=== PATIENT | male | born 1960 | race Caucasian/White ===

== ENCOUNTER 2017-02-15 06:58 | Inpatient (IN) | payer OTHER ==
[~2017-02-15] VITALS: Ht 188 cm; Wt 76.0 kg
[2017-02-15] MEDS ORDERED: SOD CHLORIDE 0.9% 1,000 ML IV STA (08:01)
--- NOTE | 2017-02-15 08:36 | RADRPT ---
PROCEDURE: XR Chest. CLINICAL INDICATION: Pain . TECHNIQUE: Single frontal chest x-ray. COMPARISON: None. FINDINGS: There is focal consolidation in the right lower lung. Left lung is clear. .. The cardiomediastinal silhouette is unremarkable. The osseous structures are intact. IMPRESSION: Focal right lower lung consolidation or pneumonia.. RPTAT: GG .Ozzy Patino MD, MD Date Time Electronically viewed and signed by .Ozzy Patino MD, on 02/15/2017 08:36 .L/
[2017-02-15] MEDS ORDERED: SODIUM CHLORIDE 0.9% 1L BAG IV* STA (08:45)
[2017-02-15] MEDS ORDERED: CEFEPIME 2GM/50 ML (PMX) 50 ML IVPB STA (08:45)
[2017-02-15 08:49] LABS: ABNORMAL IP MESSAGE 1; BASOPHILS % 0.3 % (0.0-2.0); EOSINOPHILS # 0.1 10^3/ul (0.0-0.5); EOSINOPHILS % 0.9 % (0.0-7.0); HEMATOCRIT 35.4 % (42.0-52.0); HEMOGLOBIN 10.7 g/dl (14.0-18.0); LYMPHOCYTES # 0.5 10^3/ul (0.8-2.9); LYMPHOCYTES % 7.3 % (15.0-51.0); MEAN CORPUSCULAR HEMOGLOBIN 29.5 pg (29.0-33.0); MEAN CORPUSCULAR HGB CONC 30.2 g/dl (32.0-37.0); MEAN CORPUSCULAR VOLUME 97.5 fl (82.0-101.0); MEAN PLATELET VOLUME 11.4 fl (7.4-10.4); MONOCYTES % 15.2 % (0.0-11.0); NEUTROPHIL # 4.8 10^3/ul (1.6-7.5); NEUTROPHILS % 70.9 % (39.0-77.0); NUCLEATED RED BLOOD CELLS% 0.6 /100WBC (0.0-0.0); PLATELET COUNT 164 10^3/UL (140-415); POSITIVE DIFF @See below; RED BLOOD COUNT 3.63 10^6/ul (4.70-6.10); RED CELL DISTRIBUTION WIDTH 18.9 % (11.5-14.5); WHITE BLOOD COUNT 6.7 10^3/ul (4.8-10.8)
[2017-02-15 09:07] LABS: INR 1.3; PROTIME 16.3 Sec (12.2-14.2); PT RATIO 1.3
[2017-02-15 09:14] LABS: ALBUMIN 3.4 g/dl (3.3-4.9); ALBUMIN/GLOBULIN RATIO 0.87; BILIRUBIN,DIRECT 0.1 mg/dl (0.00-0.20); BILIRUBIN,INDIRECT 0.6 mg/dl (0-1.1); BILIRUBIN,TOTAL 0.7 mg/dl (0.2-1.3); CREATININE 0.59 mg/dl (0.61-1.24); TOTAL PROTEIN 7.3 g/dl (6.1-8.1)
[2017-02-15 09:24] LABS: TROPONIN-I 0.013 ng/ml (0.00-0.12)
[2017-02-15] MEDS ORDERED: ONDANSETRON 4 MG INJ IV PRN ×2 (11:00→12:30)
[2017-02-15] MEDS ORDERED: ACETAMINOPHEN 325 MG TAB PO PRN ×2 (11:00→12:30)
[2017-02-15 12:02] LABS: ADD UMIC NO; UR ASCORBIC ACID NEGATIVE (NEGATIVE); UR BILIRUBIN (Dip) NEGATIVE (NEGATIVE); UR BLOOD (Dip) NEGATIVE (NEGATIVE); UR CLARITY CLEAR (CLEAR); UR COLOR AMBER (YELLOW); UR GLUCOSE (Dip) NEGATIVE (NEGATIVE); UR KETONES (Dip) NEGATIVE (NEGATIVE); UR LEUKOCYTE ESTERASE (Dip) NEGATIVE Leu/ul (NEGATIVE); UR NITRITE (Dip) NEGATIVE (NEGATIVE); UR SPECIFIC GRAVITY (Dip) 1.018 (1.003-1.030); UR TOTAL PROTEIN (Dip) NEGATIVE (NEGATIVE); UR UROBILINOGEN (Dip) NEGATIVE (NEGATIVE)
--- NOTE | 2017-02-15 12:03 | ERA ---
ER Documentation Chief Complaint Date/Time DATE: 02/15/17 TIME: 11:50 Chief Complaint abd and back pain x 8 days HPI 56-year-old homeless male with a history of HIV/AIDS, hep C, recent history of bacteremia, and chronic pain with chronic leg swelling presenting to the ER with generalized weakness, complains of abdominal cramping, diarrhea that is nonbloody, with dizziness. He denies any associated chest pain but feels slightly short of breath. He has not noticed any fevers or chills. However he feels like his leg pain and swelling are worsening as are his other symptoms. ROS All systems reviewed and are negative except as per history of present illness. Allergies Allergies: Coded Allergies: vancomycin (Verified Allergy, Unknown, RASH, 02/15/17) PMhx/Soc History of Surgery: Yes (knee ) Anesthesia Reaction: No Hx Neurological Disorder: No Hx Respiratory Disorders: No Hx Cardiac Disorders: No Hx Psychiatric Problems: No Hx Miscellaneous Medical Probl: Yes (hep c , hiv , anemia ) Hx Alcohol Use: Yes Hx Substance Use: Yes (marijuana) Hx Tobacco Use: Yes Smoking Status: Current some day smoker FmHx Family History: No diabetes Physical Exam Vitals Vital Signs Date Time Temp Pulse Resp B/P Pulse Ox O2 Delivery O2 Flow Rate FiO2 02/15/17 11:20 102 18 109/63 96 Nasal Cannula 2.0 02/15/17 08:30 108 18 112/78 98 Nasal Cannula 2.0 02/15/17 07:04 99.1 122 20 119/69 77 Physical Exam Const: Appears chronically ill, unkempt, nontoxic Head: Atraumatic Eyes: Normal Conjunctiva ENT: Normal External Ears, Nose. Dry Mouth. Neck: Full range of motion..~ No meningismus. Resp: Diminished breath sounds right lung, no wheezing or rales Cardio: tachycardic with regular rhythm, no murmurs Abd: Soft, non tender, non distended. hyperactive bowel sounds Skin: No petechiae or rashes Back: No midline or flank tenderness Ext: BLER edema, L>R, no erythema. Diffuse tenderness to palpation Neur: Awake and alert, oriented x 3, strength grossly intact but limited in lower extremities secondary to pain Psych: Normal Mood and Affect Result Diagram: 02/15/1782402/15/17824 Results 24 hrs Laboratory Tests Test 02/15/17 08:25 02/15/17 09:11 02/15/17 11:06 White Blood Count 6.710^3/ul Red Blood Count 3.6310^6/ul Hemoglobin 10.7g/dl Hematocrit 35.4% Mean Corpuscular Volume 97.5fl Mean Corpuscular Hemoglobin 29.5pg Mean Corpuscular Hemoglobin Concent 30.2g/dl Red Cell Distribution Width 18.9% Platelet Count 32092^3/UL Mean Platelet Volume 11.4fl Neutrophils % 70.9% Lymphocytes % 7.3% Monocytes % 15.2% Eosinophils % 0.9% Basophils % 0.3% Nucleated Red Blood Cells % 0.6/100WBC Neutrophils # 4.810^3/ul Lymphocytes # 0.510^3/ul Monocytes # 1.010^3/ul Eosinophils # 0.110^3/ul Basophils # 0.010^3/ul Nucleated Red Blood Cells # 0.010^3/ul Prothrombin Time 16.3Sec Prothrombin Time Ratio 1.3 INR International Normalized Ratio 1.30 Activated Partial Thromboplast Time 36.0Sec Sodium Level 138mmol/L Potassium Level 4.0mmol/L Chloride Level 108mmol/L Carbon Dioxide Level 22mmol/L Anion Gap 12 Blood Urea Nitrogen 20mg/dl Creatinine 0.59mg/dl Glucose Level 75mg/dl Calcium Level 8.0mg/dl Total Bilirubin 0.7mg/dl Direct Bilirubin 0.10mg/dl Indirect Bilirubin 0.6mg/dl Aspartate Amino Transf (AST/SGOT) 61IU/L Alanine Aminotransferase (ALT/SGPT) 38IU/L Alkaline Phosphatase 103IU/L Troponin I 0.013ng/ml Total Protein 7.3g/dl Albumin 3.4g/dl Globulin 3.90g/dl Albumin/Globulin Ratio 0.87 Lipase 24U/L Lactic Acid Level 1.0mmol/L 1.0mmol/L Current Medications Medications (Trade) Dose Ordered Sig/Cecilio Route PRN Reason Start Time Stop Time Status Last Admin Dose Admin Sodium Chloride (NS) 1,000 ml @ 1,000 mls/hr Q1H STAT IV 02/15/17 08:01 02/15/17 09:00 DC 02/15/17 08:27 Sodium Chloride 1340 ml 1,340 ml BOLUS OVER 2 HOURS STAT IV* 02/15/17 08:45 02/15/17 08:47 DC 02/15/17 09:01 Cefepime HCl (Maxipime 2gm/50 ml (Pmx)) 50 ml @ 100 mls/hr ONCE STAT IVPB 02/15/17 08:45 02/15/17 09:14 DC 02/15/17 09:00 Ondansetron HCl (Zofran Inj) 4 mg BRIDGE ORDER PRN IV NAUSEA AND/OR VOMITING 02/15/17 11:00 02/16/17 10:59 Acetaminophen (Tylenol Tab) 650 mg ER BRIDGE PRN PO MILD PAIN/FEVER 02/15/17 11:00 02/16/17 10:59 Procedures/MDM EMERGENT LABS AND DIAGNOSTIC STUDIES: Lab Results above were reviewed and interpreted by me. CBC shows anemia CMP within normal limits Lipase normal Trop wnl lactate normal 12-lead EKG was interpreted by Dutch Fajardo MD: Sinus tachycardia at 118 beats per minute Normal axis Normal intervals No acute ST or T wave changes suggestive of acute ischemia or STEMI. Radiology Results as interpreted by Radiology below were reviewed by Adelia Fajardo MD: Chest XR: IMPRESSION: Focal right lower lung consolidation or pneumonia.. RPTAT: GG .Ozzy Patino MD, MD Date Time Electronically viewed and signed by .Ozzy Patino MD, on 02/15/2017 08:36 Initial Nursing notes reviewed. Previous Medical Records requested via the Electronic Health Record. EMERGENCY DEPARTMENT COURSE / MEDICAL DECISION MAKING: Patient is presenting with multiple symptoms and generalized weakness. Vitals were notable for tachycardia and hypoxia on room air. This improved with supplemental oxygen. I have a low suspicion for meningitis or acute surgical abdomen. X-ray does show evidence of pneumonia. Patient's last CD4 count was very low he states. At this time I think the patient is high risk for decompensation and is not stable for discharge. Broad-spectrum antibiotics were started. IV fluids were given. Patient was admitted for further workup and management. Accepting Care Team: Current data and ongoing care discussed. Time: Time of admission Primary Provider: Dr. Power Consulting: None Outstanding Data: Cultures Departure Diagnosis: Primary Impression: Healthcare-associated pneumonia Additional Impression: Generalized weakness SARAH FAJARDO MD Feb 15, 2017 12:00
--- NOTE | 2017-02-15 12:07 | HP ---
Date/Time of Note Date/Time of Note DATE: 02/15/17 TIME: 12:04 Assessment/Plan VTE Prophylaxis VTE Prophylaxis Intervention: contraindicated Assessment/Plan Chief Complaint/Hosp Course 1. Possible underlying healthcare associated pneumonia. Focal right lower lung consolidation on chest x-ray. The patient will be treated with antibiotics. The patient will be provided with PCP prophylaxis. However, the patient is allergic to Bactrim. Hence, infectious diseases consult will be obtained for antibiotic management. 2. HIV positive status. Patient's CD4 count was undetectable as per report at [facility]. The patient's CD4 count will be repeated. The patient will be started on antiretroviral medications as per infectious diseases. 3. Anemia. Normocytic and normochromic. An iron panel will be obtained. Folic acid and vitamin B12 level will be obtained. 4. Bilateral lower extremity chronic lymphedema. Left greater than right. The patient has history of septic left knee. As a result, the patient has decreased mobility of the left knee joint. A bilateral lower extremity venous Doppler study will be obtained to evaluate for any underlying venous thromboembolism. And a left knee x-ray will be obtained. 5. Noncompliance. Patient will be reinforced on the importance of being compliant with medications. 6. Homeless status. Social work consult will be obtained. Plan: The patient will be admitted to inpatient setting. The patient will be started on a regular diet. The patient will remain a full code. Activities will be bedrest. The rest of the patient's management will be based on the clinical course, inputs from consultants, and the results of diagnostic studies. Based on the patient's clinical presentation, he most probably requires at least 2 midnights' stay for further management and evaluation of his clinical presentation. The case and management of this patient was fully discussed with . Problems: HPI/ROS Admit Date/Time Admit Date/Time Hx of Present Illness Reason for admission: Multiple complaints. Consultants 1. Terrance Dunn MD, Infectious Diseases This is a 56 year old male with past medical history of HIV, hepatitis C, anemia, Kaposi sarcoma, substance abuse, noncompliance, who was discharged from [facility] 2 days ago after a prolonged stay there. He came to the emergency room at [facility] because of multiple complaints. He complained of multiple episodes of nonbloody diarrhea, abdominal cramping, bilateral lower extremity pain, etc. In the emergency room, the patient's workup showed he has underlying normocytic normochromic anemia. He underwent a chest x-ray that showed focal right lower lung consolidation. He was treated with IV cefepime, and analgesics, and IV fluids in the emergency room. The patient's lactic acid levels were within normal limits. ROS Constitutional: no complaints Eyes: no complaints ENT: no complaints Respiratory: no complaints Cardiovascular: edema Gastrointestinal: diarrhea Genitourinary: no complaints Musculoskeletal: bone/joint pain, restricted range of motion (Left knee) Skin: skin lesions Neurologic: no complaints Endocrine: no complaints Lymphatic: lymphadema Psychological: no complaints Immunologic: immunodeficiency PMH/Family/Social Past Medical History Medical History: high cholesterol, other (HIV, Hep C, anemia, Kaposi Sarcoma) Past Surgical History Past Surgical Hx: other (Left knee surgery, ventral hernia repair.) Social History The patient is homeless. Alcohol Use: none Smoking Status: Current some day smoker Drug Use: marijuana Exam/Review of Systems Vital Signs Vitals Vital Signs Date Time Temp Pulse Resp B/P Pulse Ox O2 Delivery O2 Flow Rate FiO2 02/15/17 11:20 102 18 109/63 96 Nasal Cannula 2.0 02/15/17 07:04 99.1 Exam Exam General: Adequately build 56 year-old male lying in bed in no apparent distress. HEENT: Normocephalic, atraumatic. Eyes: Anicteric sclerae, conjunctivae clear. ENT: Nasal septum midline, oral mucosa moist. Neck supple, no JVD noticed. Respiratory: Bilaterally diminished breath sounds. No use of accessory muscles of respiration. No adventitious breath sounds. Cardiovascular: S1, S2 heard. No murmurs or gallops. Abdomen: Distended. Non-tender.Bowel sounds positive in all 4 quadrants. Genitourinary: Deferred. Extremities: B/L LE edema. R>L. Right knee edema and erythema. B/L LE chronic skin changes. Pedal pulses not palpable. Neurologic: Cranial nerves II through XII grossly intact. The patient is awake, alert, and oriented. Labs Result Diagram: 02/15/1782402/15/17824 Medications Medications Current Medications Cefepime HCl (Maxipime 1gm/50 ml (Pmx)) 50 ml @ 100 mls/hr Q12 IVPB ; Start at 21:00 Procedures Procedures CXR IMPRESSION: Focal right lower lung consolidation or pneumonia.. 12-lead EKG Sinus tachycardia. DELMY ÁLVAREZ NP Feb 15, 2017 12:07
[2017-02-15 12:24] LABS: IRON 13 ug/dl (35-150)
[2017-02-15] MEDS ORDERED: NACL 0.9% 3 ML SYG IV SCH (12:30)
[2017-02-15] MEDS ORDERED: morphine 2 MG INJ IV PRN (12:30)
[2017-02-15 12:33] LABS: TOTAL IRON BINDING CAPACITY 243 ug/dl (241-421)
[2017-02-15] MEDS ORDERED: CLON-412 PO (12:38)
[2017-02-15] MEDS ORDERED: GABA300C16 PO (12:39)
[2017-02-15] MEDS ORDERED: DOLU50TA PO (12:39)
[2017-02-15] MEDS ORDERED: NICO1PAT6 TD (12:40)
[2017-02-15] MEDS ORDERED: ONDA-43 PO (12:40)
[2017-02-15] MEDS ORDERED: DOCU-159 PO (12:41)
[2017-02-15] MEDS ORDERED: DARU1TAB PO (12:41)
[2017-02-15] MEDS ORDERED: ZOLP5TAB7 PO (12:41)
[2017-02-15] MEDS ORDERED: FOLI-49 PO (12:42)
[2017-02-15] MEDS ORDERED: ATOV750L PO (12:42)
[2017-02-15] MEDS ORDERED: DOCU-144 PO (12:42)
[2017-02-15 13:34] LABS: FOLATE > 20.0 ng/ml (2.8-20.0)
[2017-02-15] MEDS ORDERED: IMO2 PO (13:45)
[2017-02-15 14:00] VITALS: TEMP 98.6
--- NOTE | 2017-02-15 14:11 | RADRPT ---
PROCEDURE: XR Knee. CLINICAL INDICATION: Inability to straighten leg. TECHNIQUE: AP and lateral views of the left knee are available for review. COMPARISON: None available FINDINGS: There is severe narrowing at the medial and lateral femorotibial compartments noting marginal irregu larity. There is also severe narrowing of the patellofemoral joint. No acute osseous abnormality or evidence of fracture is seen. There is joint effusion. IMPRESSION: 1. Severe, diffuse narrowing of the femoral tibial and patellofemoral compartments noting marginal irregularity and possible erosive change. There is may either be related to underlying inflammatory or less likely infectious etiology, depending on the clinical scenario. 2. Soft tissue swelling. 3. Small joint effusion. RPTAT: HH .Umesh Kong MD, Date Time Electronically viewed and signed by .Umesh Kong MD, on 02/15/2017 14:11 .d/
[2017-02-15 14:13] LABS: BARBITURATES Negative (NEGATIVE); BENZODIAZEPINES Negative (NEGATIVE); CANNABINOIDS Negative (NEGATIVE); COCAINE Negative (NEGATIVE); OPIATES Positive (NEGATIVE)
[2017-02-15] MEDS: HYDROCODONE/APAP (5/325) TAB PO PRN (14:58)
--- NOTE | 2017-02-15 15:51 | RADRPT ---
PROCEDURE: US Lower extremity Venous. CLINICAL INDICATION: Bilateral leg swelling TECHNIQUE: Multiple sonographic images of the bilateral lower extremity deep venous system was obt ained utilizing mcneal scale, color-flow, compressive sonography and doppler imaging with augmentation . COMPARISON: None. FINDINGS: There is normal compressibility and flow within the bilateral common femoral, femoral and popliteal veins. Visualized portions of the calf veins are patent. IMPRESSION: No sonographic evidence for deep venous thrombosis. RPTAT:AAJJ Physician Berlin Date Time Electronically viewed and signed by Physician Berlin on 02/15/2017 15:51 /
[2017-02-15] MEDS ORDERED: LEVOFLOXACIN 500 MG TAB PO ONE (16:30)
[2017-02-15] MEDS ORDERED: ATOVAQUONE 750 MG/5 ML CUP PO ONE (16:30)
[2017-02-15] MEDS: morphine 2 MG INJ IV PRN ×2 (17:25→23:07)
[2017-02-15 17:30] VITALS: PULSE 112
[2017-02-15 18:04] VITALS: BP 106/58; RESP 18
[2017-02-15 18:28] VITALS: Ht 188 cm; Wt 76.0 kg
[2017-02-15 19:48] VITALS: BP 106/61; RESP 18
[2017-02-15] MEDS: FERROUS SULFATE (EC) 325 MG TAB PO SCH (20:46)
[2017-02-15] MEDS: CEFEPIME 1GM/50 ML (PMX) 50 ML IVPB SCH (23:12)
[2017-02-15] MEDS ORDERED: ZOLPIDEM 5 MG TAB PO PRN (23:30)
[2017-02-15] MEDS ORDERED: clonAZEPAM 0.5 MG TAB PO PRN (23:30)
[2017-02-16 02:00] VITALS: BP 112/70; RESP 18
[2017-02-16] MEDS: morphine 2 MG INJ IV PRN ×3 (03:04→09:44)
[2017-02-16] MEDS: HYDROCODONE/APAP (5/325) TAB PO PRN (04:31)
--- NOTE | 2017-02-16 07:32 | CONS ---
DATE OF ADMISSION: 02/15/2017 DATE OF CONSULTATION: 02/15/2017 TYPE OF CONSULTATION: Infectious Disease. REASON FOR CONSULTATION: Antibiotic management. HISTORY OF PRESENT ILLNESS: Michael Be is an unfortunate 56-year-old male with numerous problems w nidhi was at [facility] yesterday and is now admitted to the emergency room at [facility]. PAST MEDICAL HISTORY: His past problems include: 1. History of AIDS. 2. Kaposi sarcoma. 3. Possible pneumocystis pneumonia. 4. 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 6. Recent Stenotrophomonas bacteremia, previously on mepron for PCP and Prezcobix and Tivicay among other medications. Acutely, the patient has a history of substance abuse, noncompliance. He complains of multiple epis odes of nonbloody diarrhea, abdominal cramping, bilateral lower extremity pain. In the emergency ro om, he has underlying normocytic normochromic anemia. Chest x-ray showed some focal right lower maria eugenia g consolidation. He was treated with cefepime and analgesics. He has possible underlying healthcar e-associated pneumonia, focal right lower lobe consolidation on chest x-ray. HE IS ALLERGIC TO BACT RIM. Patient was being treated with mepron, and we will have to get the information from [facility]. His CD4 count was undetectable at [facility]. He needs antiretroviral agents. He has bilate ral lower extremity chronic lymphedema. He has decreased mobility of the left knee joint. Bilatera l lower extremity Doppler was ordered. He is noncompliant. He is homeless. On admission, his whit e count was 6.7, H and H of 10.7 and 35.4, platelet count 164,000. BUN and creatinine 20/0.59, gluc ose random was 75. PAST SURGICAL HISTORY: Operations as outlined. Status post left knee surgery. Status post ventral hernia repair. SOCIAL HISTORY: As noted, he is homeless. He is an every day smoker. He uses marijuana. ALLERGIES: NONE TO PENICILLIN, SULFA OR FOODS. MEDICATIONS: Per chart. REVIEW OF SYSTEMS: As per HPI. PHYSICAL EXAMINATION: GENERAL: The patient is a well-developed, well-nourished male who is lying in bed in no acute distr ess. VITAL SIGNS: Stable. He is afebrile. SKIN: Without generalized rash. HEENT: Within normal limits. NECK: Supple. LYMPH NODES: None palpable. CHEST: Decreased breath sounds at the bases. HEART: Without murmur or gallop. ABDOMEN: Soft, nontender, without organosplenomegaly or masses. EXTREMITIES: Without cyanosis, clubbing. He has bilateral lower extremity edema, right greater mahad n left, with right knee edema and erythema. His pulses are not palpable. NEUROLOGIC: Cranial nerves are intact. No focal neurological abnormalities. IMPRESSION AND PLAN: Patient was started on cefepime, but we need to get the records from [facility] in order to determine what appropriate antibiotics the patient should be on. The patient is als o noted to have hepatitis C as well as HIV and anemia. I will discuss my findings with the hospital ist and try to get records from [facility]. Dictated By: MARNIE LYONS MD, JD/ANNETTE Conf#: [id number] DID#: [id number] CC: SUKHDEEP WILLAMS MD;*EndCC*
[2017-02-16] MEDS: FERROUS SULFATE (EC) 325 MG TAB PO SCH ×3 (08:54→21:38)
[2017-02-16] MEDS: CEFEPIME 1GM/50 ML (PMX) 50 ML IVPB SCH ×2 (09:24→21:38)
[2017-02-16 09:38] VITALS: BP 111/63; RESP 20
--- NOTE | 2017-02-16 10:45 | CONS ---
Date/Time of Note Date/Time of Note DATE: 02/16/17 TIME: 10:39 Assessment/Plan Assessment/Plan Additional Assessment/Plan Left lower extremity pain but objective findings of an acute process HIV per patient Hepatitis C per patient's history Recent hospitalization at [facility] per patient Pain management syndrome Patient is not compliant with history or physical examination. He refuses to answer my questions both about his past medical history use of opioids or history of present illness. I see no reason to keep him on high dose of opioids especially at discharge if he stays for 24 hours I will give him appropriate pain control medication, but only during hospitalization strongly recommend not sending him home in any pain control medication but refer to pain management clinic as soon as possible. Consultation Date/Type/Reason Admit Date/Time Type of Consultation: Pain management Reason for Consultation This is a 56-year-old gentleman with history of HIV and hepatitis C from a pain management standpoint patient states that his pain is left knee and left ankle. This gentleman is very verbally abusive, aggressive and refuses to give a clear current or past medical history. Now that he was recently discharged from [facility] and he states he was treated badly and refuses to give me a history of what he was treated for what he was discharged with. He continues to say his left knee hurts that he has had a history of osteomyelitis multiple times last time was 1 year ago. He states that his knee pain is associated also with his ankle discomfort. Further than that on questioning he refuses to give me any more answers and states that I am asking too many questions. Eyes: no complaints ENT: no complaints Respiratory: no complaints Cardiovascular: edema Gastrointestinal: diarrhea Genitourinary: no complaints Musculoskeletal: bone/joint pain, restricted range of motion (Left knee) Skin: skin lesions Neurologic: no complaints Lymphatic: lymphadema Psychological: no complaints Immunologic: immunodeficiency Past Medical History Medical History: high cholesterol, other (HIV, Hep C, anemia, Kaposi Sarcoma) Past Surgical History Past Surgical Hx: other (Left knee surgery, ventral hernia repair.) Social History Alcohol Use: none Smoking Status: Current every day smoker Drug Use: marijuana Exam/Review of Systems Vital Signs Vitals Vital Signs Date Time Temp Pulse Resp B/P Pulse Ox O2 Delivery O2 Flow Rate FiO2 02/16/17 09:38 98.2 96 20 111/63 90 02/16/17 09:00 Nasal Cannula 2.0 Intake and Output 02/15/17 02/15/17 02/16/17 15:00 23:00 07:00 Intake Total 820 ml 50 ml Output Total 200 ml Balance 620 ml 50 ml Exam Constitutional: other (Aggressive and verbally abusive, unkempt) Head: atraumatic, normocephalic Neurological: CHIP SEPARATOR II-XII intact, nl mental status, nl speech, nl strength Skin: other (4+ circumferential left ankle edema and pretibial edema areas of excoriation and runny discoloration, non-erythematous without flocculence or streaking erythema, 2+ tender from the ankle, range of motion limited to 30 surgical scar anterior patella clean without erythema or discharge, without clubbing cyanosis) Results Result Diagram: 02/15/1782402/15/17 0825 Results 24 hrs Laboratory Tests Test 02/15/17 11:06 02/15/17 11:32 02/15/17 13:10 Lactic Acid Level 1.0 1.2 Urine Color ALEE Urine Clarity CLEAR Urine pH 6.0 Urine Specific [place] 1.018 Urine Ketones NEGATIVE Urine Nitrite NEGATIVE Urine Bilirubin NEGATIVE Urine Urobilinogen NEGATIVE Urine Leukocyte Esterase NEGATIVE Urine Hemoglobin NEGATIVE Urine Glucose NEGATIVE Urine Total Protein NEGATIVE Hemoglobin A1c 5.1 Vitamin D 1,25-Dihydroxy 62.3 Thyroid Stimulating Hormone (TSH) 7.760 H Free Thyroxine 1.25 Urine Opiates Screen Positive Urine Barbiturates Negative Urine Amphetamines Screen Negative Urine Benzodiazepines Screen Negative Urine Cocaine Screen Negative Urine Cannabinoids Negative Medications Medications Current Medications Cefepime HCl (Maxipime 1gm/50 ml (Pmx)) 50 ml @ 100 mls/hr Q12 IVPB Last administered on 02/16/17 09:24; Admin Dose 100 MLS/HR; Start 02/15/17 at 21: 00 Ondansetron HCl (Zofran Inj) 4 mg Q6H PRN IV NAUSEA AND/OR VOMITING; Start 03/24 at 12:30 Acetaminophen (Tylenol Tab) 650 mg Q6H PRN PO PAIN LEVEL 1-3 OR FEVER; Start 02/15/17 at 12:30 Acetaminophen/ Hydrocodone Bitart ([place] (5/325)) 1 tab Q6H PRN PO MODERATE PAIN LEVEL 4-6 Last administered on 02/16/17 04:31; Admin Dose 1 TAB; Start 02/15/17 at 12:30 Ferrous Sulfate (Ferrous Sulfate (Ec)) 325 mg TID PO Last administered on 02/16 08:54; Admin Dose 325 MG; Start 02/15/17 at 21:00 Morphine Sulfate (morphine) 2 mg Q3 PRN IV pain Last administered on 09:44; Admin Dose 2 MG; Start 02/15/17 at 17:30 Clonazepam (Klonopin) 1 mg BID PRN PO ANXIETY Last administered on 02/15/17 23:42; Admin Dose 1 MG; Start 02/15/17 at 23:30 Zolpidem Tartrate (Ambien) 5 mg QHS PRN PO INSOMNIA; Start 02/15/17 at 23:30 URIAH CARRASCO Feb 16, 2017 10:44
[2017-02-16 11:34] LABS: ABNORMAL IP MESSAGE 1; BASOPHILS % 0.3 % (0.0-2.0); EOSINOPHILS # 0.1 10^3/ul (0.0-0.5); EOSINOPHILS % 3.8 % (0.0-7.0); HEMATOCRIT 31.2 % (42.0-52.0); HEMOGLOBIN 9.3 g/dl (14.0-18.0); LYMPHOCYTES # 0.4 10^3/ul (0.8-2.9); LYMPHOCYTES % 10.6 % (15.0-51.0); MEAN CORPUSCULAR HEMOGLOBIN 30.2 pg (29.0-33.0); MEAN CORPUSCULAR HGB CONC 29.8 g/dl (32.0-37.0); MEAN CORPUSCULAR VOLUME 101.3 fl (82.0-101.0); MEAN PLATELET VOLUME 11.2 fl (7.4-10.4); MONOCYTE # 0.3 10^3/ul (0.3-0.9); MONOCYTES % 7.6 % (0.0-11.0); NEUTROPHIL # 2.8 10^3/ul (1.6-7.5); NEUTROPHILS % 75.2 % (39.0-77.0); NUCLEATED RED BLOOD CELLS% 0.8 /100WBC (0.0-0.0); PLATELET COUNT 103 10^3/UL (140-415); POSITIVE DIFF @See below; RED BLOOD COUNT 3.08 10^6/ul (4.70-6.10); RED CELL DISTRIBUTION WIDTH 18.1 % (11.5-14.5); WHITE BLOOD COUNT 3.7 10^3/ul (4.8-10.8)
[2017-02-16 11:55] LABS: ALANINE AMINOTRANSFERASE 41 IU/L (13-69); ALBUMIN/GLOBULIN RATIO 0.85; ALKALINE PHOSPHATASE 110 IU/L (42-121); ANION GAP 9 (8-16); ASPARTATE AMINO TRANSFERASE 71 IU/L (15-46); BILIRUBIN,INDIRECT 0.4 mg/dl (0-1.1); BILIRUBIN,TOTAL 0.4 mg/dl (0.2-1.3); BLOOD UREA NITROGEN 19 mg/dl (7-20); CALCIUM 7.8 mg/dl (8.4-10.2); CARBON DIOXIDE 25 mmol/L (21-31); CHLORIDE 108 mmol/L (97-110); CREATININE 0.63 mg/dl (0.61-1.24); GLUCOSE 127 mg/dl (70-220); HDL CHOLESTEROL 19 mg/dl (28-71); MAGNESIUM 1.8 mg/dl (1.7-2.5); POTASSIUM 4.7 mmol/L (3.5-5.1); SODIUM 137 mmol/L (135-144); TOTAL PROTEIN 6.5 g/dl (6.1-8.1); TRIGLYCERIDES 114 mg/dl (0-149)
--- NOTE | 2017-02-16 11:57 | PN ---
Date/Time of Note Date/Time of Note DATE: 02/16/17 TIME: 11:37 Assessment/Plan VTE Prophylaxis VTE Prophylaxis Intervention: ambulation Lines/Catheters IV Catheter Type (from Nrsg): Peripheral IV Urinary Cath still in place: No Assessment/Plan Chief Complaint/Hosp Course 56-year-old homeless male with a history of IV drug abuse, left knee septic arthritis, noncompliant, who is also recently treated for PCP was again readmitted for left lower extremity swelling and pain. 1. Bilateral lower extremity lymphedema with recent history of left knee septic arthritis. Status Post treatment. -Negative for DVT. Knee X-ray with no significant changes. -We will call pain management team to involve as we do not feel a reason to keep patient on high-dose opioids. -Meanwhile, we will also obtain a bilateral arterial studies to evaluate for any vascular issues that we need to address in-house. 2. Possible Pneumonia per X-ray.Clinically stable. -On IV cefepime. Of note, he was treated with Mepron for PCP prophylaxis at [facility]. -Repeat chest x-ray in a.m and follow-up with ID recommendations. 3. HIV/AIDS? -Follow-up CD4 count. Patient also was on Prezcobix and Tivicay at OSH- Currently he is not on HAART regimen. defer ID on HAART regimen 4. Chronic anemia. H&H stable. -Monitor. 5.Hepatitis C per patient's history -Obtain Hep panel. 6. Status post staph bacteremia. -F/u Repeat culture 7.Status post treatment for cryptococcal meningitis. Currently stable. 8. Noncompliance. -Patient was counselled. 9. Homelessness -Social service eval. 10. Substance abuse. -Cessation advised. 11. Narcotic seeking behaviors. -Patient will be appropriately placed on pain medications. Plan: Follow-up with pain management recommendations. If no further antibiotic treatment indicated, patient is likely stable to be discharged home tomorrow if cleared from ID standpoint. Patient to be followed up with his pain management clinic as outpatient for his pain medications prescriptions as there is currently no reliable information available to support that patient was on methadone treatment. Obtain medical records from [facility] as soon as possible. Patient was seen in collaboration with Dr. Power. Problems: Subjective 24 Hr Interval Summary Free Text/Dictation Patient sitting up in bed. He is not in any acute distress. Continued to complaining of pain on bilateral legs. Otherwise, patient refuses to answer any further questions and reports that he does not want to talk to anyone and needs his pain medications. Exam/Review of Systems Vital Signs Vitals Vital Signs Date Time Temp Pulse Resp B/P Pulse Ox O2 Delivery O2 Flow Rate FiO2 02/16/17 09:38 98.2 96 20 111/63 90 02/16/17 09:00 Nasal Cannula 2.0 Intake and Output 02/15/17 02/15/17 02/16/17 15:00 23:00 07:00 Intake Total 820 ml 50 ml Output Total 200 ml Balance 620 ml 50 ml Exam General: Very aggressive and verbally abusive. HEENT: Normocephalic, Atraumatic, No laceration or hematoma; Eyes: PEERL, Conjunctiva clear, Anicteric sclera Neck: Supple without any lymphadenopathy, nontender, no JVD, no carotid bruits, trachea midline, no thyromegaly Cardiac: S1, S2 auscultated, regular rhythm and rate, no mumurs or gallop Pulmonary: Normal respiratory effort. Chest clear to auscultation bilaterally, no adventitious breath sounds GI: Abdomen normal to inspection. Soft, non tender, non- distended, no masses, no rebound tenderness or guarding. Bowel sounds active on all four quadrants Genitourinary: Deferred Extremities: Bilateral lower extremity/ankle edema with excoriated skin with chronic scleral changes. No focal weakness appreciated. Neurologic: Alert to person, place, time, and situation. Highly Temperamental personality. Skin: Excoriated skin. No cyanosis. Results Result Diagram: 02/15/1782402/15/17824 Results 24 hrs Laboratory Tests Test 02/15/17 13:10 Lactic Acid Level 1.2 Medications Medications Current Medications Cefepime HCl (Maxipime 1gm/50 ml (Pmx)) 50 ml @ 100 mls/hr Q12 IVPB Last administered on 02/16/17t 09:24; Admin Dose 100 MLS/HR; Start 02/15/17 at 21: 00 Ondansetron HCl (Zofran Inj) 4 mg Q6H PRN IV NAUSEA AND/OR VOMITING; Start 03/24 at 12:30 Acetaminophen (Tylenol Tab) 650 mg Q6H PRN PO PAIN LEVEL 1-3 OR FEVER; Start 02/15/17 at 12:30 Ferrous Sulfate (Ferrous Sulfate (Ec)) 325 mg TID PO Last administered on 02/16t 08:54; Admin Dose 325 MG; Start 02/15/17 at 21:00 Zolpidem Tartrate (Ambien) 5 mg QHS PRN PO INSOMNIA; Start 02/15/17 at 23:30 Methadone HCl (Methadone) 20 mg BID PO ; Start 02/16/17 at 21:00; Status UNV Hydromorphone HCl (Dilaudid) 2 mg Q6H PRN PO PAIN LEVEL 6-10; Start 02/16/17 at 10:30; Status UNV DANYELLE GAMEZ NP Feb 16, 2017 11:55 DANYELLE GAMEZ NP Feb 16, 2017 11:55
[2017-02-16 12:11] LABS: CHOLESTEROL < 50 mg/dl (100-200)
[2017-02-16] MEDS ORDERED: LEVOFLOXACIN 500 MG TAB PO ONE (13:00)
[2017-02-16] MEDS ORDERED: AZITHROMYCIN 600 MG TAB PO SCH (13:00)
[2017-02-16] MEDS: HYDROmorphONE 2 MG TAB PO PRN ×2 (13:12→19:34)
[2017-02-16] MEDS: FLUCONAZOLE 200 MG TAB PO SCH (13:42)
[2017-02-16] MEDS ORDERED: NEUTRA-PHOS 250 MG PACKET PO ONE (14:30)
[2017-02-16] MEDS ORDERED: PENDING SANTYL ORDER FOR WOUND CARE XX PRN (16:00)
[2017-02-16 16:12] VITALS: BP 107/59; RESP 20
[2017-02-16 17:05] LABS: HAAIG REFLEX REFLEX FILED
[2017-02-16] MEDS: ATOVAQUONE 750 MG/5 ML CUP PO SCH (18:00)
[2017-02-16 18:45] LABS: HEPATITIS B CORE ANTIBODY REACTIVE (NEGATIVE)
[2017-02-16 20:00] VITALS: BP 107/63; RESP 20
[2017-02-16] MEDS ORDERED: BUPROPION (SR) 100 MG TAB PO SCH (20:30)
[2017-02-16] MEDS: clonAZEPAM 0.5 MG TAB PO SCH (21:38)
[2017-02-16] MEDS: ZYVOX 600 MG TAB PO SCH (21:39)
[2017-02-16] MEDS: ACYCLOVIR 400 MG TAB PO SCH (21:39)
[2017-02-16] MEDS: METHADONE 10 MG TAB PO SCH (21:39)
[2017-02-17] MEDS: HYDROmorphONE 2 MG TAB PO PRN (02:56)
[2017-02-17] MEDS: hydrOXYzine PAMOATE 25 MG CAP PO PRN (04:47)
[2017-02-17] MEDS: LEVOFLOXACIN 500 MG TAB PO SCH (05:34)
[2017-02-17 06:19] LABS: CALCIUM 7.7 mg/dl (8.4-10.2); CREATININE 0.54 mg/dl (0.61-1.24); PHOSPHORUS 2.6 mg/dl (2.5-4.9); POTASSIUM 4.4 mmol/L (3.5-5.1)
--- NOTE | 2017-02-17 07:09 | PN ---
DATE: 02/17/2017 SUBJECTIVE: Patient is awake, looks comfortable, complaining of pain. He had been afebrile overnight. VITAL SIGNS: Temperature 98.2, pulse 96, respirations 20, blood pressure 111/63 , saturation 90% on 2 liters. LABORATORY STUDIES: WBC 3.7, H and H 9.3 and 31.2, platelets 103, neutrophils 75.2. BUN 19, creatinine 0.63, albumin 3. MICROBIOLOGY: Blood and urine culture negative. DIAGNOSTICS: Chest x-ray from admission revealed focal right lower lung consolidation or pneumonia. Extremity venous study revealed no DVT. X-ray of the left knee showed small joint effusion, soft tissue swelling, severe diffuse narrowing of the femoral, tibial and patellofemoral compartments, noting marginal irregularity and possible erosive change. This may be either related to underlying inflammatory or less likely infectious etiology. ANTIMICROBIALS: The patient is on cefepime. PHYSICAL EXAMINATION: GENERAL: Chronically ill-appearing, cachectic, middle-aged man in no distress. HEENT: Head atraumatic, normocephalic. Sclerae anicteric. Buccal mucosa dry. CHEST: Rise symmetrical. Breath sounds diminished to bases. HEART: S1, S2. ABDOMEN: Soft. Bowel tones hypoactive. EXTREMITIES: Left lower extremity edema, chronic. ASSESSMENT: 1. Healthcare-associated pneumonia. 2. Acquired immunodeficiency syndrome with recent CD4 count at [facility] being undetectable, patient had been noncompliant with [facility] 3. Stenotrophomonas and methicillin-resistant Staphylococcus aureus bacteremia on 01/12/2017 and on 03/05/2017 blood culture grew Stenotrophomonas. Repeat blood cultures negative. 4. Chronic pancytopenia. 5. History of Strep pyogenes left knee septic arthritis, treated in the past. 6. Methicillin-resistant Staphylococcus aureus nares colonization. 7. 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 9. Hepatitis C virus, s/p treated with Harvoni. 10. History of noncompliance and pain seeking behavior. 11. ALLERGY TO SULFA, CEFTRIAXONE, CIPROFLOXACIN, DAPSONE, VANCOMYCIN. PLAN: We are going to start Zyvox. Continue cefepime. We will ask pharmacy to get Prezcobix and Tivicay for HIV. Start him on meprone for PCP prophylaxis , oral Levaquin, fluconazole, and acyclovir given as significant immunocompromised state. Monitor his chest x-ray closely. Further recommendations per patient's clinical course. Dictated By: WILFREDO MARION [employer]UAL ASSIST[employer] for MARNIE JAMESON/ANNETTE Conf#: [id number] DID#: [id number] MTDD
[2017-02-17 07:53] VITALS: BP 107/58; RESP 18
--- NOTE | 2017-02-17 08:54 | RADRPT ---
PROCEDURE: US Lower extremity arterial. CLINICAL INDICATION: Diminished pulses. TECHNIQUE: Multiple sonographic images of the bilateral lower extremity arteries were obtained uti lizing grayscale, color-flow and doppler imaging. The images were reviewed on a PACS workstation. COMPARISON: None. FINDINGS: There is no significant calcific plaque. Velocities and waveforms were obtained as described below. RIGHT LEG: Right common femoral artery: 104 cm/s; triphasic waveforms Right proximal superficial femoral artery: 112 cm/s; triphasic waveforms Right mid superficial femoral artery: 82 cm/s; triphasic waveforms Right distal superficial femoral artery: 92 cm/s; triphasic waveforms Right popliteal artery: 98 cm/s; triphasic waveforms Right posterior tibial artery: 129 cm/s; triphasic waveforms Right dorsalis pedis artery: 53 cm/s; triphasic waveforms LEFT LEG: Left common femoral artery: 89 cm/s; triphasic waveforms Left proximal superficial femoral artery: 106 cm/s; triphasic waveforms Left mid superficial femoral artery: 91 cm/s; triphasic waveforms Left distal superficial femoral artery: 101 cm/s; triphasic waveforms Left popliteal artery: 78 cm/s; triphasic waveforms Left posterior tibial artery: 109 cm/s; triphasic waveforms Left dorsalis pedis artery: 54 cm/s; triphasic waveforms IMPRESSION: Unremarkable bilateral lower extremity arterial Doppler ultrasound. RPTAT: GG .Jim Pineda MD, MD Date Time Electronically viewed and signed by .Jim Pineda MD, MD on 02/17/2017 08:53 .G/
--- NOTE | 2017-02-17 08:56 | RADRPT ---
PROCEDURE: XR Chest. CLINICAL INDICATION: pneumonia TECHNIQUE: AP view of the chest were obtained. COMPARISON: February 15, 2017 FINDINGS: The cardiomediastinal silhouette is within normal limits. Bilateral pneumonia is mildly progressed o n the right and significantly progressed on the left. Follow-up to resolution. No signs of pleural f luid or pneumothorax are seen. The osseous structures and soft tissues are grossly unremarkable. IMPRESSION: Bilateral pneumonia is mildly progressed on the right and significantly progressed on the left. Foll ow-up to resolution. RPTAT: GG .Jim Pineda MD, MD Date Time Electronically viewed and signed by .iJm Pineda MD, on 02/17/2017 08:55 .G/
[2017-02-17] MEDS: METHADONE 10 MG TAB PO SCH ×2 (09:01→20:29)
[2017-02-17] MEDS: FLUCONAZOLE 200 MG TAB PO SCH (09:01)
[2017-02-17] MEDS: ZYVOX 600 MG TAB PO SCH ×2 (09:01→20:29)
[2017-02-17] MEDS: FERROUS SULFATE (EC) 325 MG TAB PO SCH ×3 (09:01→20:29)
[2017-02-17] MEDS: ACYCLOVIR 400 MG TAB PO SCH ×2 (09:01→20:28)
[2017-02-17] MEDS: clonAZEPAM 0.5 MG TAB PO SCH ×2 (09:02→20:29)
[2017-02-17] MEDS: CEFEPIME 1GM/50 ML (PMX) 50 ML IVPB SCH ×2 (09:02→20:28)
--- NOTE | 2017-02-17 09:28 | PN ---
Date/Time of Note Date/Time of Note DATE: 02/17/17 TIME: 09:28 Assessment/Plan VTE Prophylaxis VTE Prophylaxis Intervention: ambulation Lines/Catheters IV Catheter Type (from Nrs): Peripheral IV Urinary Cath still in place: No Assessment/Plan Chief Complaint/Hosp Course 56-year-old homeless male with a history of IV drug abuse, left knee septic arthritis, noncompliant, who is also recently treated for PCP was again readmitted for pain management for left lower extremity swelling and pain. 1. Bilateral lower extremity lymphedema (L>R) with a recent history of left knee septic arthritis. Status Post treatment. -Negative arterial and venous studies. -Judicious administration of narcotics as patient is noted with pain seeking behaviors. -We will up with pain management team recommendation. 2.Possible bilateral pneumonia per X-ray. Not symptomatic. -ID on board. On Zyvox/cefepime/Mepron for PCP prophylaxis/Levaquin/ fluconazole/acyclovir given as significant immunocompromised state. -Consider pulmonary evaluation. Follow-up chest x-rays. 3. HIV/AIDS. Previously reported undetectable CD4 from outside hospital. -Follow-up CD4 count. Plan is to start HAART regimen. -Needs to have outpatient clinic follow-up. 4. Chronic anemia. H&H stable. -Monitor. 5.Hepatitis C -Status post treatment. Needs outpatient follow-up. 6. Status post staph bacteremia. -Repeat culture so far negative. 7.History of Kaposi sarcoma/ cryptococcal meningitis. 8. Noncompliance. -Patient was counselled. 9. Homelessness -Social service eval. 10. Substance abuse. -Cessation advised. 11. Narcotic seeking behaviors. -Patient will be appropriately placed on pain medications. 12. Diarrhea, likely AIDS related -Obtain stool studies for C. difficile. -If CDIFF negative, PRN lomotil Plan: Follow up with pulmonary recommendations. If stable for outpatient follow -up, consider discharge planning. In regards to his pain management, patient to be followed up with his outpatient pain management clinic. Patient was seen in collaboration with Dr. Power. Problems: Subjective 24 Hr Interval Summary Free Text/Dictation Patient sitting up in bed. As soon as I walked into the room, he addressed me as "Oh,are you also a friend of the pain management DrJesus who does not know what he is doing"? He also reported that he has not seen me before. I myself reintroduced me to him saying that I was the nurse practitioner who saw you yesterday. Then he stated that I have not seen him before. Patient does not report any cough, fever, chills. He also denied chest pain, palpitation, diaphoresis, headache or any focal deficit. Patient reports that he has been having ongoing diarrhea. He denied any melena, hematochezia, hematemesis, nausea, vomiting or abdominal pain. Patient continued to have pain on his left lower extremities. Exam/Review of Systems Vital Signs Vitals Vital Signs Date Time Temp Pulse Resp B/P Pulse Ox O2 Delivery O2 Flow Rate FiO2 02/17/17 07:53 98.8 86 18 107/58 91 02/16/17 09:00 Nasal Cannula 2.0 Intake and Output 02/16/17 02/16/17 02/17/17 15:00 23:00 07:00 Intake Total 1050 ml 1410 ml Output Total 400 ml Balance 650 ml 1410 ml Exam General: Very aggressive and verbally abusive. HEENT: Normocephalic, Atraumatic, No laceration or hematoma; Eyes: PEERL, Conjunctiva clear, Anicteric sclera Neck: Supple without any lymphadenopathy, nontender, no JVD, no carotid bruits, trachea midline, no thyromegaly Cardiac: S1, S2 auscultated, regular rhythm and rate, no mumurs or gallop Pulmonary: Normal respiratory effort. Chest clear to auscultation bilaterally, no adventitious breath sounds GI: Abdomen normal to inspection. Soft, non tender, non- distended, no masses, no rebound tenderness or guarding. Bowel sounds active on all four quadrants Genitourinary: Deferred Extremities: Bilateral lower extremity/ankle edema with excoriated skin with chronic scleral changes. No focal weakness appreciated. Neurologic: Alert to person, place, time, and situation. Highly Temperamental personality. Skin: Excoriated skin. No cyanosis. Results Result Diagram: 02/16/17 1121 02/17/17 0511 Results 24 hrs Laboratory Tests Test 02/16/17 11:21 02/16/17 16:55 02/17/17 05:11 White Blood Count 3.7 #L Red Blood Count 3.08 L Hemoglobin 9.3 L Hematocrit 31.2 L Mean Corpuscular Volume 101.3 H Mean Corpuscular Hemoglobin 30.2 Mean Corpuscular Hemoglobin Concent 29.8 L Red Cell Distribution Width 18.1 H Platelet Count 103 #L Mean Platelet Volume 11.2 H Neutrophils % 75.2 Lymphocytes % 10.6 L Monocytes % 7.6 Eosinophils % 3.8 Basophils % 0.3 Nucleated Red Blood Cells % 0.8 H Neutrophils # 2.8 Lymphocytes # 0.4 L Monocytes # 0.3 Eosinophils # 0.1 Basophils # 0.0 Nucleated Red Blood Cells # 0.0 Sodium Level 137 136 Potassium Level 4.7 4.4 Chloride Level 108 108 Carbon Dioxide Level 25 23 Anion Gap 9 9 Blood Urea Nitrogen 19 18 Creatinine 0.63 0.54 L Glucose Level 127 # 115 Calcium Level 7.8 L 7.7 L Phosphorus Level 2.0 L 2.6 Magnesium Level 1.8 Total Bilirubin 0.4 Direct Bilirubin 0.00 Indirect Bilirubin 0.4 Aspartate Amino Transf (AST/SGOT) 71 H Alanine Aminotransferase (ALT/SGPT) 41 Alkaline Phosphatase 110 Total Protein 6.5 Albumin 3.0 L Globulin 3.50 H Albumin/Globulin Ratio 0.85 Triglycerides Level 114 Cholesterol Level < 50 L LDL Cholesterol, Calculated HDL Cholesterol 19 L Cholesterol/HDL Ratio Hepatitis B Surface Antigen NEGATIVE Hepatitis B Core Total Antibody REACTIVE H Hepatitis C Antibody REACTIVE H Medications Medications Current Medications Cefepime HCl (Maxipime 1gm/50 ml (Pmx)) 50 ml @ 100 mls/hr Q12 IVPB Last administered on 02/17/17 09:02; Admin Dose 100 MLS/HR; Start 02/15/17 at 21: 00 Ondansetron HCl (Zofran Inj) 4 mg Q6H PRN IV NAUSEA AND/OR VOMITING; Start 03/24 at 12:30 Acetaminophen (Tylenol Tab) 650 mg Q6H PRN PO PAIN LEVEL 1-3 OR FEVER; Start 02/15/17 at 12:30 Ferrous Sulfate (Ferrous Sulfate (Ec)) 325 mg TID PO Last administered on 02/17 09:01; Admin Dose 325 MG; Start 02/15/17 at 21:00 Zolpidem Tartrate (Ambien) 5 mg QHS PRN PO INSOMNIA; Start 02/15/17 at 23:30 Methadone HCl (Methadone) 20 mg BID PO Last administered on 02/17/17 09:01; Admin Dose 20 MG; Start 02/16/17 at 21:00 Hydromorphone HCl (Dilaudid) 2 mg Q6H PRN PO PAIN LEVEL 6-10 Last administered on 02/17/17 02:56; Admin Dose 2 MG; Start 02/16/17 at 10:30 Levofloxacin (Levaquin) 500 mg DAILY@06 PO Last administered on 02/17/17 05: 34; Admin Dose 500 MG; Start 02/17/17 at 06:00 Azithromycin (Zithromax) 1,200 mg Q7D PO Last administered on 02/16/17 15:47 ; Admin Dose 1,200 MG; Start 02/16/17 at 13:00 Fluconazole (Diflucan) 200 mg DAILY PO Last administered on 02/17/17 09:01; Admin Dose 200 MG; Start 02/16/17 at 13:00 Acyclovir (Zovirax) 400 mg BID PO Last administered on 02/17/17 09:01; Admin Dose 400 MG; Start 02/16/17 at 21:00 Linezolid (Zyvox) 600 mg BID PO Last administered on 02/17/17 09:01; Admin Dose 600 MG; Start 02/16/17 at 21:00 Miscellaneous Information (Pending [facility] Order For Wound Care) This patient west... PRN PRN XX WOUND CARE; Start 02/16/17 at 16:00 Clonazepam (Klonopin) 1 mg Q12 PO Last administered on 02/17/17 09:02; Admin Dose 1 MG; Start 02/16/17 at 21:00 Hydroxyzine Pamoate (Vistaril) 25 mg Q6H PRN PO ITCHING Last administered on 04:47; Admin Dose 25 MG; Start 02/16/17 at 20:30 Bupropion HCl (Wellbutrin Sr) 300 mg DAILY PO ; Start 02/16/17 at 20:30; Status UNV DANYELLE GAMEZ V. BANQUET COOK Feb 17, 2017 09:28 DANYELLE GAMEZ V. BANQUET COOK Feb 17, 2017 09:28 DANYELLE GAMEZ V. BANQUET COOK Feb 17, 2017 09:28
--- NOTE | 2017-02-17 09:50 | CONS ---
Date/Time of Note Date/Time of Note DATE: 02/17/17 TIME: 09:47 Consultation Date/Type/Reason Admit Date/Time Feb 15, 2017 at 10:56 Initial Consult Date Type of Consultation: Pain management 24 HR Interval Summary Free Text/Dictation Yesterday patient threatening saying he was going to take a nail and driving into my head with a hammer. After that I spoke to the director of nurses and security advised me to call the police. They arrived I gave them history they spoke with patient and the protein he afterwards and it did not think that there would be more problems. I did not push to press charges or have him arrested. Today I spoke with him reemphasize he needs to go to a methadone treatment program and reemphasize we cannot will not prescribe opioids at the time of discharge. He is unhappy with this but I reemphasized he should seek treatment at a methadone treatment program. I spoken with patient's primary healthcare analyst, she was in attendance when patient threatened to me yesterday for not giving him the opioids he requested. Exam/Review of Systems Vital Signs Vitals Vital Signs Date Time Temp Pulse Resp B/P Pulse Ox O2 Delivery O2 Flow Rate FiO2 02/17/17 07:53 98.8 86 18 107/58 91 02/16/17 09:00 Nasal Cannula 2.0 Intake and Output 02/16/17 02/16/17 02/17/17 15:00 23:00 07:00 Intake Total 1050 ml 1410 ml Output Total 400 ml Balance 650 ml 1410 ml Results Result Diagram: 02/16/17 1121 02/17/17 0511 Results 24 hrs Laboratory Tests Test 02/16/17 11:21 02/16/17 16:55 02/17/17 05:11 White Blood Count 3.7 #L Red Blood Count 3.08 L Hemoglobin 9.3 L Hematocrit 31.2 L Mean Corpuscular Volume 101.3 H Mean Corpuscular Hemoglobin 30.2 Mean Corpuscular Hemoglobin Concent 29.8 L Red Cell Distribution Width 18.1 H Platelet Count 103 #L Mean Platelet Volume 11.2 H Neutrophils % 75.2 Lymphocytes % 10.6 L Monocytes % 7.6 Eosinophils % 3.8 Basophils % 0.3 Nucleated Red Blood Cells % 0.8 H Neutrophils # 2.8 Lymphocytes # 0.4 L Monocytes # 0.3 Eosinophils # 0.1 Basophils # 0.0 Nucleated Red Blood Cells # 0.0 Sodium Level 137 136 Potassium Level 4.7 4.4 Chloride Level 108 108 Carbon Dioxide Level 25 23 Anion Gap 9 9 Blood Urea Nitrogen 19 18 Creatinine 0.63 0.54 L Glucose Level 127 # 115 Calcium Level 7.8 L 7.7 L Phosphorus Level 2.0 L 2.6 Magnesium Level 1.8 Total Bilirubin 0.4 Direct Bilirubin 0.00 Indirect Bilirubin 0.4 Aspartate Amino Transf (AST/SGOT) 71 H Alanine Aminotransferase (ALT/SGPT) 41 Alkaline Phosphatase 110 Total Protein 6.5 Albumin 3.0 L Globulin 3.50 H Albumin/Globulin Ratio 0.85 Triglycerides Level 114 Cholesterol Level < 50 L LDL Cholesterol, Calculated HDL Cholesterol 19 L Cholesterol/HDL Ratio Hepatitis B Surface Antigen NEGATIVE Hepatitis B Core Total Antibody REACTIVE H Hepatitis C Antibody REACTIVE H Medications Medications Current Medications Cefepime HCl (Maxipime 1gm/50 ml (Pmx)) 50 ml @ 100 mls/hr Q12 IVPB Last administered on 02/17/17 09:02; Admin Dose 100 MLS/HR; Start 02/15/17 at 21: 00 Ondansetron HCl (Zofran Inj) 4 mg Q6H PRN IV NAUSEA AND/OR VOMITING; Start 03/24 at 12:30 Acetaminophen (Tylenol Tab) 650 mg Q6H PRN PO PAIN LEVEL 1-3 OR FEVER; Start 02/15/17 at 12:30 Ferrous Sulfate (Ferrous Sulfate (Ec)) 325 mg TID PO Last administered on 02/17 09:01; Admin Dose 325 MG; Start 02/15/17 at 21:00 Zolpidem Tartrate (Ambien) 5 mg QHS PRN PO INSOMNIA; Start 02/15/17 at 23:30 Methadone HCl (Methadone) 20 mg BID PO Last administered on 02/17/17 09:01; Admin Dose 20 MG; Start 02/16/17 at 21:00 Hydromorphone HCl (Dilaudid) 2 mg Q6H PRN PO PAIN LEVEL 6-10 Last administered on 02/17/17 02:56; Admin Dose 2 MG; Start 02/16/17 at 10:30 Levofloxacin (Levaquin) 500 mg DAILY@06 PO Last administered on 02/17/17 05: 34; Admin Dose 500 MG; Start 02/17/17 at 06:00 Azithromycin (Zithromax) 1,200 mg Q7D PO Last administered on 02/16/17 15:47 ; Admin Dose 1,200 MG; Start 02/16/17 at 13:00 Fluconazole (Diflucan) 200 mg DAILY PO Last administered on 02/17/17 09:01; Admin Dose 200 MG; Start 02/16/17 at 13:00 Acyclovir (Zovirax) 400 mg BID PO Last administered on 02/17/17 09:01; Admin Dose 400 MG; Start 02/16/17 at 21:00 Linezolid (Zyvox) 600 mg BID PO Last administered on 02/17/17 09:01; Admin Dose 600 MG; Start 02/16/17 at 21:00 Miscellaneous Information (Pending Santyl Order For Wound Care) This patient west... PRN PRN XX WOUND CARE; Start 02/16/17 at 16:00 Clonazepam (Klonopin) 1 mg Q12 PO Last administered on 02/17/17 09:02; Admin Dose 1 MG; Start 02/16/17 at 21:00 Hydroxyzine Pamoate (Vistaril) 25 mg Q6H PRN PO ITCHING Last administered on 04:47; Admin Dose 25 MG; Start 02/16/17 at 20:30 Bupropion HCl (Wellbutrin Sr) 300 mg DAILY PO ; Start 02/16/17 at 20:30; Status UNV Diphenoxylate HCl/ Atropine (Lomotil) 1 tab Q6H PRN PO DIARRHEA; Start at 10:00; Status UNV URIAH CARRASCO Feb 17, 2017 09:50
[2017-02-17] MEDS ORDERED: DIPHENOXYLATE/ATROPINE TAB PO PRN (10:00)
[2017-02-17 11:57] LABS: LYMPHOCYTE - CD4/CD8 RATIO 0.06 (0.86-5.00)
--- NOTE | 2017-02-17 13:20 | CONS ---
Date/Time of Note Date/Time of Note DATE: 02/17/17 TIME: 13:16 Assessment/Plan Assessment/Plan Additional Assessment/Plan Chest x-ray was reviewed from admission which is showing bilateral infiltrates. Difficult to rule out underlying pulmonary fibrosis. Assessment and recommendations; 1. Patient admitted with what appears to be bilateral pneumonia currently on appropriate antibiotic regimen. 2. 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 3. Chronic lower extremity edema. 4. Chronic diarrhea. Likely HIV induced. 5. Anemia. Continue current treatment. Obtain follow-up chest x-ray in 48 hours. Consultation Date/Type/Reason Admit Date/Time Feb 15, 2017 at 10:56 Date of Consultation: Feb 17, 2017 Type of Consultation: Pulmonary Reason for Consultation Pulmonary consultation requested for evaluation of pneumonia. History of presenting illness; patient is a 56-year-old male who was admitted 2 days ago with complaints of being short of breath. The patient was recently discharged from [facility] where apparently he had a prolonged stay for pneumonia. Patient denies any significant shortness of breath, but does complain of chronic generalized weakness and pain. Denies any coughing or sputum production. Any fever or chills. Past medical history; 1. Patient with history of being HIV positive. Next 2. History of Kaposi's sarcoma. Next 3. Chronic lower extremity edema. Next 4. History of cryptococcal meningitis couple of years ago. Medications; reviewed. Next Allergies; are multiple as outlined above. Social history; patient is homeless. Occupational history; patient is on disability. Review of systems; complains of very minimal shortness of breath. Denies any fever. Chest pain. Complains of mild cough. Complains of generalized weakness. Denies any abdominal pain, nausea vomiting. Complains of chronic lower extremity edema. General exam; middle-aged male, awake, currently in no distress. Eyes: no complaints ENT: no complaints Respiratory: no complaints Cardiovascular: edema Gastrointestinal: diarrhea Genitourinary: no complaints Musculoskeletal: bone/joint pain, restricted range of motion (Left knee) Skin: skin lesions Neurologic: no complaints Lymphatic: lymphadema Psychological: no complaints Immunologic: immunodeficiency Past Medical History Medical History: high cholesterol, other (HIV, Hep C, anemia, Kaposi Sarcoma) Past Surgical History Past Surgical Hx: other (Left knee surgery, ventral hernia repair.) Social History Alcohol Use: none Smoking Status: Current every day smoker Drug Use: marijuana Exam/Review of Systems Vital Signs Vitals Vital Signs Date Time Temp Pulse Resp B/P Pulse Ox O2 Delivery O2 Flow Rate FiO2 02/17/17 07:53 98.8 86 18 107/58 91 02/16/17 09:00 Nasal Cannula 2.0 Intake and Output 02/16/17 02/16/17 02/17/17 15:00 23:00 07:00 Intake Total 1050 ml 1410 ml Output Total 400 ml Balance 650 ml 1410 ml Exam HEENT exam; supple neck, no JVD. No lymphadenopathy. Midline trachea. No thyromegaly. Pharynx is clear. No oral thrush. Chest exam; diminished but clear breath sounds. S1-S2 audible, no murmurs. Regular rhythm. Abdomen exam; soft, protuberant. Bowel sounds audible. Nontender. Extremity exam; 2+ pitting edema lower extremities bilaterally. AL[employer] WORK[employer] exam; no focal deficit. Results Result Diagram: 02/16/17 1121 02/17/17 0511 Results 24 hrs Laboratory Tests Test 02/16/17 16:55 02/17/17 05:11 Hepatitis B Surface Antigen NEGATIVE Hepatitis B Core Total Antibody REACTIVE H Hepatitis C Antibody REACTIVE H Sodium Level 136 Potassium Level 4.4 Chloride Level 108 Carbon Dioxide Level 23 Anion Gap 9 Blood Urea Nitrogen 18 Creatinine 0.54 L Glucose Level 115 Calcium Level 7.7 L Phosphorus Level 2.6 Medications Medications Current Medications Cefepime HCl (Maxipime 1gm/50 ml (Pmx)) 50 ml @ 100 mls/hr Q12 IVPB Last administered on 02/17/17 09:02; Admin Dose 100 MLS/HR; Start 02/15/17 at 21: 00 Ondansetron HCl (Zofran Inj) 4 mg Q6H PRN IV NAUSEA AND/OR VOMITING; Start 03/24 at 12:30 Acetaminophen (Tylenol Tab) 650 mg Q6H PRN PO PAIN LEVEL 1-3 OR FEVER; Start 02/15/17 at 12:30 Ferrous Sulfate (Ferrous Sulfate (Ec)) 325 mg TID PO Last administered on 02/17 09:01; Admin Dose 325 MG; Start 02/15/17 at 21:00 Zolpidem Tartrate (Ambien) 5 mg QHS PRN PO INSOMNIA; Start 02/15/17 at 23:30 Methadone HCl (Methadone) 20 mg BID PO Last administered on 02/17/17 09:01; Admin Dose 20 MG; Start 02/16/17 at 21:00 Hydromorphone HCl (Dilaudid) 2 mg Q6H PRN PO PAIN LEVEL 6-10 Last administered on 02/17/17 02:56; Admin Dose 2 MG; Start 02/16/17 at 10:30 Levofloxacin (Levaquin) 500 mg DAILY@06 PO Last administered on 02/17/17 05: 34; Admin Dose 500 MG; Start 02/17/17 at 06:00 Azithromycin (Zithromax) 1,200 mg Q7D PO Last administered on 02/16/17 15:47 ; Admin Dose 1,200 MG; Start 02/16/17 at 13:00 Fluconazole (Diflucan) 200 mg DAILY PO Last administered on 02/17/17 09:01; Admin Dose 200 MG; Start 02/16/17 at 13:00 Acyclovir (Zovirax) 400 mg BID PO Last administered on 02/17/17 09:01; Admin Dose 400 MG; Start 02/16/17 at 21:00 Linezolid (Zyvox) 600 mg BID PO Last administered on 02/17/17 09:01; Admin Dose 600 MG; Start 02/16/17 at 21:00 [facility] This patient west... PRN PRN XX WOUND CARE; Start 02/16/17 at 16:00 Clonazepam (Klonopin) 1 mg Q12 PO Last administered on 02/17/17 09:02; Admin Dose 1 MG; Start 02/16/17 at 21:00 Hydroxyzine Pamoate (Vistaril) 25 mg Q6H PRN PO ITCHING Last administered on 04:47; Admin Dose 25 MG; Start 02/16/17 at 20:30 Bupropion HCl (Wellbutrin Sr) 300 mg DAILY PO ; Start 02/16/17 at 20:30; Status UNV Diphenoxylate HCl/ Atropine (Lomotil) 1 tab Q6H PRN PO DIARRHEA; Start at 10:00; Status Future Hold QARNI,CHIQUITA Feb 17, 2017 13:20
--- NOTE | 2017-02-17 13:32 | CONS ---
Date/Time of Note Date/Time of Note DATE: 02/17/17 TIME: 13:26 Consult Date/Type/Reason Admit Date/Time Feb 15, 2017 at 10:56 Initial Consult Date 02/17/17 Type of Consultation: ID Objective Vital Signs Date Time Temp Pulse Resp B/P Pulse Ox O2 Delivery O2 Flow Rate FiO2 02/17/17 07:53 98.8 86 18 107/58 91 02/16/17 09:00 Nasal Cannula 2.0 Intake and Output 02/16/17 02/16/17 02/17/17 15:00 23:00 07:00 Intake Total 1050 ml 1410 ml Output Total 400 ml Balance 650 ml 1410 ml Results/Medications Result Diagram: 02/16/17 1121 02/17/17 0511 Results 24 hrs Laboratory Tests Test 02/16/17 16:55 02/17/17 05:11 Hepatitis B Surface Antigen NEGATIVE Hepatitis B Core Total Antibody REACTIVE H Hepatitis C Antibody REACTIVE H Sodium Level 136 Potassium Level 4.4 Chloride Level 108 Carbon Dioxide Level 23 Anion Gap 9 Blood Urea Nitrogen 18 Creatinine 0.54 L Glucose Level 115 Calcium Level 7.7 L Phosphorus Level 2.6 Medications Current Medications Cefepime HCl (Maxipime 1gm/50 ml (Pmx)) 50 ml @ 100 mls/hr Q12 IVPB Last administered on 02/17/17 09:02; Admin Dose 100 MLS/HR; Start 02/15/17 at 21: 00 Ondansetron HCl (Zofran Inj) 4 mg Q6H PRN IV NAUSEA AND/OR VOMITING; Start 03/24 at 12:30 Acetaminophen (Tylenol Tab) 650 mg Q6H PRN PO PAIN LEVEL 1-3 OR FEVER; Start 02/15/17 at 12:30 Ferrous Sulfate (Ferrous Sulfate (Ec)) 325 mg TID PO Last administered on 02/17 09:01; Admin Dose 325 MG; Start 02/15/17 at 21:00 Zolpidem Tartrate (Ambien) 5 mg QHS PRN PO INSOMNIA; Start 02/15/17 at 23:30 Methadone HCl (Methadone) 20 mg BID PO Last administered on 02/17/17 09:01; Admin Dose 20 MG; Start 02/16/17 at 21:00 Hydromorphone HCl (Dilaudid) 2 mg Q6H PRN PO PAIN LEVEL 6-10 Last administered on 02/17/17 02:56; Admin Dose 2 MG; Start 02/16/17 at 10:30 Levofloxacin (Levaquin) 500 mg DAILY@06 PO Last administered on 02/17/17 05: 34; Admin Dose 500 MG; Start 02/17/17 at 06:00 Azithromycin (Zithromax) 1,200 mg Q7D PO Last administered on 02/16/17 15:47 ; Admin Dose 1,200 MG; Start 02/16/17 at 13:00 Fluconazole (Diflucan) 200 mg DAILY PO Last administered on 02/17/17 09:01; Admin Dose 200 MG; Start 02/16/17 at 13:00 Acyclovir (Zovirax) 400 mg BID PO Last administered on 02/17/17 09:01; Admin Dose 400 MG; Start 02/16/17 at 21:00 Linezolid (Zyvox) 600 mg BID PO Last administered on 02/17/17 09:01; Admin Dose 600 MG; Start 02/16/17 at 21:00 [facility] This patient west... PRN PRN XX WOUND CARE; Start 02/16/17 at 16:00 Clonazepam (Klonopin) 1 mg Q12 PO Last administered on 02/17/17 09:02; Admin Dose 1 MG; Start 02/16/17 at 21:00 Hydroxyzine Pamoate (Vistaril) 25 mg Q6H PRN PO ITCHING Last administered on 04:47; Admin Dose 25 MG; Start 02/16/17 at 20:30 Bupropion HCl (Wellbutrin Sr) 300 mg DAILY PO ; Start 02/16/17 at 20:30; Status UNV Diphenoxylate HCl/ Atropine (Lomotil) 1 tab Q6H PRN PO DIARRHEA; Start at 10:00; Status Future Hold Assessment/Plan Chief Complaint/Hosp Course SUBJECTIVE: No acute changes, sleeping, looks comfortable, no fevers MICROBIOLOGY: Blood and urine culture negative. ANTIMICROBIALS: Zyvox, Cefepime, Levaquin, Diflucan, Meprone, Acyclovir. ALL: Sulfa, Vanco, Dapsone, Cipro, Rocephin PHYSICAL EXAMINATION: GENERAL: Chronically ill-appearing, cachectic, middle-aged man in no distress. HEENT: Head atraumatic, normocephalic. Sclerae anicteric. Buccal mucosa dry. CHEST: Rise symmetrical. Breath sounds diminished to bases. HEART: S1, S2. ABDOMEN: Soft. Bowel tones hypoactive. EXTREMITIES: Left lower extremity edema, chronic. ASSESSMENT: 1. Healthcare-associated pneumonia. 2. Acquired immunodeficiency syndrome with recent CD4 count at [facility] being undetectable, patient had been noncompliant with [facility]AN 3. Stenotrophomonas and methicillin-resistant Staphylococcus aureus bacteremia on 01/12/2017 and on 03/05/2017 blood culture grew Stenotrophomonas. Repeat blood cultures negative. 4. Chronic pancytopenia. 5. History of Strep pyogenes left knee septic arthritis, treated in the past. 6. Methicillin-resistant Staphylococcus aureus nares colonization. 7. 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 9. Hepatitis C virus, s/p treated with Harvoni. 10. History of noncompliance and pain seeking behavior. 11. LLE chronic lymphedema 12. ALLERGY TO SULFA, CEFTRIAXONE, CIPROFLOXACIN, DAPSONE, VANCOMYCIN. PLAN: Clinically stable, with worsening CXR, covered with abx, f/u cxr, pulmonary rec-s, pharmacy trying to get his HIV medications Problems: WILFREDO MARION NP Feb 17, 2017 13:32
[2017-02-17 14:58] VITALS: BP 106/61; RESP 18
[2017-02-17] MEDS: ATOVAQUONE 750 MG/5 ML CUP PO SCH (18:30)
[2017-02-17 20:00] VITALS: BP 181/75; RESP 20
[2017-02-18 02:00] VITALS: BP 107/70; RESP 20
[2017-02-18] MEDS: HYDROmorphONE 2 MG TAB PO PRN ×2 (04:08→10:47)
[2017-02-18] MEDS: LEVOFLOXACIN 500 MG TAB PO SCH (05:49)
[2017-02-18] MEDS: hydrOXYzine PAMOATE 25 MG CAP PO PRN (06:19)
[2017-02-18 07:47] VITALS: BP 113/65; RESP 14
[2017-02-18] MEDS: CEFEPIME 1GM/50 ML (PMX) 50 ML IVPB SCH ×2 (08:44→21:02)
[2017-02-18] MEDS: ACYCLOVIR 400 MG TAB PO SCH ×2 (08:44→21:04)
[2017-02-18] MEDS: ZYVOX 600 MG TAB PO SCH ×2 (08:44→21:03)
[2017-02-18] MEDS: FERROUS SULFATE (EC) 325 MG TAB PO SCH ×3 (08:44→21:04)
[2017-02-18] MEDS: FLUCONAZOLE 200 MG TAB PO SCH (08:44)
[2017-02-18] MEDS: clonAZEPAM 0.5 MG TAB PO SCH ×2 (08:44→21:04)
[2017-02-18] MEDS: METHADONE 10 MG TAB PO SCH ×2 (08:45→21:03)
--- NOTE | 2017-02-18 09:06 | PN ---
Date/Time of Note Date/Time of Note DATE: 02/18/17 TIME: 09:01 Assessment/Plan VTE Prophylaxis VTE Prophylaxis Intervention: ambulation Lines/Catheters IV Catheter Type (from Nrs): Peripheral IV Urinary Cath still in place: No Assessment/Plan Chief Complaint/Hosp Course 56-year-old homeless male with a history of IV drug abuse, left knee septic arthritis, noncompliant, who is also recently treated for PCP was again readmitted for pain management for left lower extremity swelling and pain. 1. Bilateral lower extremity lymphedema (L>R) with a recent history of left knee septic arthritis. Status Post treatment. -Negative arterial and venous studies. -Judicious administration of narcotics as patient is noted with pain seeking behaviors. -We will up with pain management team recommendation. 2.Possible bilateral pneumonia per X-ray. Not symptomatic. -ID on board. On Zyvox/cefepime/Mepron for PCP prophylaxis/Levaquin/ fluconazole/acyclovir given as significant immunocompromised state. -Pulmonary evaluation appreciated and per recommendation, pulmonary fibrosis cannot be excluded at this time. Follow-up chest x-rays. 3. HIV/AIDS with CD4 count 20. Patient with noncompliance with his antiretroviral therapy. -Pharmacy trying to get HAART regimen. -Needs to have outpatient clinic follow-up. 4. Chronic anemia. H&H stable. -Monitor. 5.Hepatitis C -Status post treatment. Needs outpatient follow-up. 6. Status post staph bacteremia. -Repeat culture so far negative. 7.History of Kaposi sarcoma/ cryptococcal meningitis. 8. Noncompliance. -Patient was counselled. 9. Homelessness -Social service eval. 10. Substance abuse. -Cessation advised. 11. Narcotic seeking behaviors. -Patient will be appropriately placed on pain medications. 12. Diarrhea, likely AIDS related -Follow-up stool C. difficile. -If CDIFF negative, PRN lomotil Plan: As per pulmonary/ID recommendation, we will continue current antimicrobial regimen along with antiretroviral therapy. We will follow-up chest x-ray in 24-48 hours. In regards to his pain management, patient to be followed up with his outpatient pain management clinic. Patient was seen in collaboration with Dr. Power. Problems: Subjective 24 Hr Interval Summary Free Text/Dictation Patient continued to have diarrhea. Remains afebrile. Exam/Review of Systems Vital Signs Vitals Vital Signs Date Time Temp Pulse Resp B/P Pulse Ox O2 Delivery O2 Flow Rate FiO2 02/18/17 07:58 Nasal Cannula 2.0 02/18/17 07:47 97.4 89 14 113/65 91 Intake and Output 02/17/17 02/17/17 02/18/17 15:00 23:00 07:00 Intake Total 1350 ml 2170 ml 800 ml Balance 1350 ml 2170 ml 800 ml Exam General: With highly temperamental personality HEENT: Normocephalic, Atraumatic, No laceration or hematoma; Eyes: PEERL, Conjunctiva clear, Anicteric sclera Neck: Supple without any lymphadenopathy, nontender, no JVD, no carotid bruits, trachea midline, no thyromegaly Cardiac: S1, S2 auscultated, regular rhythm and rate, no mumurs or gallop Pulmonary: Normal respiratory effort. Chest clear to auscultation bilaterally, no adventitious breath sounds GI: Abdomen normal to inspection. Soft, non tender, non- distended, no masses, no rebound tenderness or guarding. Bowel sounds active on all four quadrants Genitourinary: Deferred Extremities: Bilateral lower extremity/ankle edema with excoriated skin with chronic scleral changes. No focal weakness appreciated. Neurologic: Alert to person, place, time, and situation. Highly Temperamental personality. Skin: Excoriated skin. No cyanosis. Results Result Diagram: 02/16/17 1121 02/17/17 0511 Medications Medications Current Medications Cefepime HCl (Maxipime 1gm/50 ml (Pmx)) 50 ml @ 100 mls/hr Q12 IVPB Last administered on 02/17/17 20:28; Admin Dose 100 MLS/HR; Start 02/15/17 at 21: 00 Ondansetron HCl (Zofran Inj) 4 mg Q6H PRN IV NAUSEA AND/OR VOMITING; Start 03/24 at 12:30 Acetaminophen (Tylenol Tab) 650 mg Q6H PRN PO PAIN LEVEL 1-3 OR FEVER; Start 02/15/17 at 12:30 Ferrous Sulfate (Ferrous Sulfate (Ec)) 325 mg TID PO Last administered on 02/17 20:29; Admin Dose 325 MG; Start 02/15/17 at 21:00 Zolpidem Tartrate (Ambien) 5 mg QHS PRN PO INSOMNIA; Start 02/15/17 at 23:30 Methadone HCl (Methadone) 20 mg BID PO Last administered on 02/17/17 20:29; Admin Dose 20 MG; Start 02/16/17 at 21:00 Hydromorphone HCl (Dilaudid) 2 mg Q6H PRN PO PAIN LEVEL 6-10 Last administered on 02/18/17 04:08; Admin Dose 2 MG; Start 02/16/17 at 10:30 Levofloxacin (Levaquin) 500 mg DAILY@06 PO Last administered on 02/18/17 05: 49; Admin Dose 500 MG; Start 02/17/17 at 06:00 Azithromycin (Zithromax) 1,200 mg Q7D PO Last administered on 02/16/17 15:47 ; Admin Dose 1,200 MG; Start 02/16/17 at 13:00 Fluconazole (Diflucan) 200 mg DAILY PO Last administered on 02/17/17 09:01; Admin Dose 200 MG; Start 02/16/17 at 13:00 Acyclovir (Zovirax) 400 mg BID PO Last administered on 02/17/17 20:28; Admin Dose 400 MG; Start 02/16/17 at 21:00 Linezolid (Zyvox) 600 mg BID PO Last administered on 02/17/17 20:29; Admin Dose 600 MG; Start 02/16/17 at 21:00 Miscellaneous Information (Pending [facility] Order For Wound Care) This patient west... PRN PRN XX WOUND CARE; Start 02/16/17 at 16:00 Clonazepam (Klonopin) 1 mg Q12 PO Last administered on 02/17/17 20:29; Admin Dose 1 MG; Start 02/16/17 at 21:00 Hydroxyzine Pamoate (Vistaril) 25 mg Q6H PRN PO ITCHING Last administered on 06:19; Admin Dose 25 MG; Start 02/16/17 at 20:30 Bupropion HCl (Wellbutrin Sr) 300 mg DAILY PO ; Start 02/16/17 at 20:30; Status UNV Diphenoxylate HCl/ Atropine (Lomotil) 1 tab Q6H PRN PO DIARRHEA; Start at 10:00; Status Future Hold Non-Formulary Medication 1 ea DAILY PO ; Start 02/18/17 at 09:00; Status UNV Dolutegravir Sodium (Tivicay) 50 mg DAILY PO ; Start 02/18/17 at 09:00; Status UNV DANYELLE GAMEZ NP Feb 18, 2017 09:05
--- NOTE | 2017-02-18 10:52 | CONS ---
Date/Time of Note Date/Time of Note DATE: 02/18/17 TIME: 10:51 Consultation Date/Type/Reason Admit Date/Time Feb 17, 2017 at 14:55 Initial Consult Date 02/17/17 Type of Consultation: pulm 24 HR Interval Summary Free Text/Dictation dictated [id number] Exam/Review of Systems Vital Signs Vitals Vital Signs Date Time Temp Pulse Resp B/P Pulse Ox O2 Delivery O2 Flow Rate FiO2 02/18/17 07:58 Nasal Cannula 2.0 02/18/17 07:47 97.4 89 14 113/65 91 Intake and Output 02/17/17 02/17/17 02/18/17 15:00 23:00 07:00 Intake Total 1350 ml 2170 ml 800 ml Balance 1350 ml 2170 ml 800 ml Results Result Diagram: 02/16/17 1121 02/17/17 0511 Medications Medications Current Medications Cefepime HCl (Maxipime 1gm/50 ml (Pmx)) 50 ml @ 100 mls/hr Q12 IVPB Last administered on 02/18/17 08:44; Admin Dose 100 MLS/HR; Start 02/15/17 at 21: 00 Ondansetron HCl (Zofran Inj) 4 mg Q6H PRN IV NAUSEA AND/OR VOMITING; Start 03/24 at 12:30 Acetaminophen (Tylenol Tab) 650 mg Q6H PRN PO PAIN LEVEL 1-3 OR FEVER; Start 02/15/17 at 12:30 Ferrous Sulfate (Ferrous Sulfate (Ec)) 325 mg TID PO Last administered on 02/18 08:44; Admin Dose 325 MG; Start 02/15/17 at 21:00 Zolpidem Tartrate (Ambien) 5 mg QHS PRN PO INSOMNIA; Start 02/15/17 at 23:30 Methadone HCl (Methadone) 20 mg BID PO Last administered on 02/18/17 08:45; Admin Dose 20 MG; Start 02/16/17 at 21:00 Hydromorphone HCl (Dilaudid) 2 mg Q6H PRN PO PAIN LEVEL 6-10 Last administered on 02/18/17 10:47; Admin Dose 2 MG; Start 02/16/17 at 10:30 Levofloxacin (Levaquin) 500 mg DAILY@06 PO Last administered on 02/18/17 05: 49; Admin Dose 500 MG; Start 02/17/17 at 06:00 Azithromycin (Zithromax) 1,200 mg Q7D PO Last administered on 02/16/17 15:47 ; Admin Dose 1,200 MG; Start 02/16/17 at 13:00 Fluconazole (Diflucan) 200 mg DAILY PO Last administered on 02/18/17 08:44; Admin Dose 200 MG; Start 02/16/17 at 13:00 Acyclovir (Zovirax) 400 mg BID PO Last administered on 02/18/17 08:44; Admin Dose 400 MG; Start 02/16/17 at 21:00 Linezolid (Zyvox) 600 mg BID PO Last administered on 02/18/17 08:44; Admin Dose 600 MG; Start 02/16/17 at 21:00 [facility] This patient west... PRN PRN XX WOUND CARE; Start 02/16/17 at 16:00 Clonazepam (Klonopin) 1 mg Q12 PO Last administered on 02/18/17 08:44; Admin Dose 1 MG; Start 02/16/17 at 21:00 Hydroxyzine Pamoate (Vistaril) 25 mg Q6H PRN PO ITCHING Last administered on 06:19; Admin Dose 25 MG; Start 02/16/17 at 20:30 Bupropion HCl (Wellbutrin Sr) 300 mg DAILY PO ; Start 02/16/17 at 20:30; Status UNV Diphenoxylate HCl/ Atropine (Lomotil) 1 tab Q6H PRN PO DIARRHEA; Start at 10:00; Status Future Hold Non-Formulary Medication 1 ea DAILY PO ; Start 02/18/17 at 09:00; Status UNV Dolutegravir Sodium (Tivicay) 50 mg DAILY PO ; Start 02/18/17 at 09:00; Status UNV CHIQUITA HOLT Feb 18, 2017 10:52
--- NOTE | 2017-02-18 12:25 | CONS ---
Date/Time of Note Date/Time of Note DATE: 02/18/17 TIME: 12:24 Assessment/Plan Assessment/Plan Chief Complaint/Hosp Course ID PROGRESS NOTE CURRENT ABX: DAY # 5 => Zyvox + Cefepime + Levaquin + Diflucan AIDS MEDS 24H INTERVAL SUMMARY * 02/15/17 BCx (-) * Awake, Alert, responsive, OOB-> Chair, mild anxiety, somewhat irritable tells me when he was younger he was immature and didn't understand consequences; nevertheless, he wants to engage me in a lengthy conversation about his BLEXT joint pain while "blaming" others including host of medical providers and facilities for "screwing up his knee and ankles". Vet demonstrates narcissistic and manipulative personality traits, demands that I stay at his bedside while he desires to tell me his entire medical history on and on an on. He uses bully attempts to get me to listen to this by telling me other providers have screwed up, each time I direct his attention back to his antibiotics and HIV ARV meds he insists I listen to other concerns about home health care social worker, homelessness, 's benefits, despite my clear explanations to him that I can answer any questions about his antibiotics, yet I cannot offer any other medical or social services analyst questions. * Patient know to Dr. Lnua ID team from prior admissions here and [facility] -- he is noncompliant with HIV medications and medical recommendations. Physical Exam Physical Exam Constitutional: VSS, NAD, OOB-Chair, HEENT: Unremarkable, missing teeth Neck: Supple, full ROM Respiratory: Rise symmetrical without dyspnea on observation Cardiovascular: nl pulses, regular rate and rhythm Gastrointestinal: Soft, NT Extremities: Warm, multiple hypopigmented scars BLEXT from prior IVDU, left knee joint larger than right w/decreased ROM Neurological: nl mental status, nl speech, nl strength ID ASSESSMENT 56 yo M admit with: 1. AIDS w/ CD4 20# = 4% on 02/15/17; recent HIV VL @ [facility] undetectable, patient had been noncompliant with [facility] * Current ARV Meds: Prescobix + Tivicay (Dolutegravir) * Long-term hx of IVDU 2. Healthcare-associated pneumonia. 3. Recurrent bacteremia => Repeat blood cultures negative. * Stenotrophomonas and MRSA bacteremia on 01/12/2017 and on 03/05/2017 blood culture grew Stenotrophomonas. * 02/03/17 BCx @ [facility]: Pseudomonas (not aeruginosa) * 01/11/17 BCx @ [facility]: Elizabethkingia Meningoseptica, MRSA => drawn from Midline Catheter 4. Chronic pancytopenia=> related to AIDS diagnosis 5. History of Strep pyogenes left knee septic arthritis 11/23/16, treated in the past. 6. Hepatitis C virus, s/p treated with Harvoni. * Hx of HBV infection in past 7. 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 9. LLE chronic lymphedema / Left knee arthritis w/joint effusion = chronic issue * (-)Arterial duplex * (-)Venous doppler 10. Diarrhea = AIDS associated 11. Psych Dx NOS w/personality disorder 12. Opioid dependency = chronic pain 13. History of noncompliance and pain seeking behavior. (+)MRSA Nares prior admission ABX ALLERGIES: VANCO IV; SULFA; CIPRO; DAPSONE; Ceftriaxone CURRENT ABX: DAY # 5 => Zyvox + Cefepime + Levaquin + Diflucan AIDS MEDS * ARV: Prescobix + Dolutegravir * Maic Prophy: Azith 12,000 mg Q7D * PJC/PCP Prophy Atovaquone * Hx of Cryptococcus: Diflucan 2000mg po daily * Acyclovir HSV Prophy ID RECOMMENDATIONS 1. When cleared by primary for DC anticipate DC on current AIDS medications + PO ABX Doxycycline 100mg po daily x 10 days + Levaquin 500mg po daily x 10 days * ARV: Prescobix + Dolutegravir * Maic Prophy: Azith 12,000 mg Q7D * PJC/PCP Prophy Atovaquone * Hx of Cryptococcus: Diflucan 2000mg po daily * Acyclovir HSV Prophy 2. Consider life-long Doxy suppressive tx for concern recurrent left septic joint 3. NOTE: Patient is ELIGIBLE FOR [facility] -- He has 6 years [employer] Service w/honorable discharge. * Consider transfer to [facility] or [place] [facility] @ [facility] -- the facility has many resources for HIV/Opioid addicted Veterans. * [place] also has excellent Psychiatric/Psychology/Social Work services that may benefit this [place]. . . Problems: Consultation Date/Type/Reason Admit Date/Time Feb 17, 2017 at 14:55 Initial Consult Date 02/17/17 Type of Consultation: ID Exam/Review of Systems Vital Signs Vitals Vital Signs Date Time Temp Pulse Resp B/P Pulse Ox O2 Delivery O2 Flow Rate FiO2 02/18/17 07:58 Nasal Cannula 2.0 02/18/17 07:47 97.4 89 14 113/65 91 Intake and Output 02/17/17 02/17/17 02/18/17 15:00 23:00 07:00 Intake Total 1350 ml 2170 ml 800 ml Balance 1350 ml 2170 ml 800 ml Results Result Diagram: 02/16/17 1121 02/17/17 0511 Medications Medications Current Medications Cefepime HCl (Maxipime 1gm/50 ml (Pmx)) 50 ml @ 100 mls/hr Q12 IVPB Last administered on 02/18/17 08:44; Admin Dose 100 MLS/HR; Start 02/15/17 at 21: 00 Ondansetron HCl (Zofran Inj) 4 mg Q6H PRN IV NAUSEA AND/OR VOMITING; Start 03/24 at 12:30 Acetaminophen (Tylenol Tab) 650 mg Q6H PRN PO PAIN LEVEL 1-3 OR FEVER; Start 02/15/17 at 12:30 Ferrous Sulfate (Ferrous Sulfate (Ec)) 325 mg TID PO Last administered on 02/18 08:44; Admin Dose 325 MG; Start 02/15/17 at 21:00 Zolpidem Tartrate (Ambien) 5 mg QHS PRN PO INSOMNIA; Start 02/15/17 at 23:30 Methadone HCl (Methadone) 20 mg BID PO Last administered on 02/18/17 08:45; Admin Dose 20 MG; Start 02/16/17 at 21:00 Hydromorphone HCl (Dilaudid) 2 mg Q6H PRN PO PAIN LEVEL 6-10 Last administered on 02/18/17 10:47; Admin Dose 2 MG; Start 02/16/17 at 10:30 Levofloxacin (Levaquin) 500 mg DAILY@06 PO Last administered on 02/18/17 05: 49; Admin Dose 500 MG; Start 02/17/17 at 06:00 Azithromycin (Zithromax) 1,200 mg Q7D PO Last administered on 02/16/17 15:47 ; Admin Dose 1,200 MG; Start 02/16/17 at 13:00 Fluconazole (Diflucan) 200 mg DAILY PO Last administered on 02/18/17 08:44; Admin Dose 200 MG; Start 02/16/17 at 13:00 Acyclovir (Zovirax) 400 mg BID PO Last administered on 02/18/17 08:44; Admin Dose 400 MG; Start 02/16/17 at 21:00 Linezolid (Zyvox) 600 mg BID PO Last administered on 02/18/17 08:44; Admin Dose 600 MG; Start 02/16/17 at 21:00 Miscellaneous Information (Pending [facility] Order For Wound Care) This patient west... PRN PRN XX WOUND CARE; Start 02/16/17 at 16:00 Clonazepam (Klonopin) 1 mg Q12 PO Last administered on 02/18/17 08:44; Admin Dose 1 MG; Start 02/16/17 at 21:00 Hydroxyzine Pamoate (Vistaril) 25 mg Q6H PRN PO ITCHING Last administered on 06:19; Admin Dose 25 MG; Start 02/16/17 at 20:30 Bupropion HCl (Wellbutrin Sr) 300 mg DAILY PO ; Start 02/16/17 at 20:30; Status UNV Diphenoxylate HCl/ Atropine (Lomotil) 1 tab Q6H PRN PO DIARRHEA; Start at 10:00; Status Future Hold Non-Formulary Medication 1 ea DAILY PO ; Start 02/18/17 at 09:00; Status UNV Dolutegravir Sodium (Tivicay) 50 mg DAILY PO ; Start 02/18/17 at 09:00; Status UNV VANNESA TINAJERO CHILD DEVELOPMENT SPECIALIST Feb 18, 2017 12:25 VANNESA TINAJERO CHILD DEVELOPMENT SPECIALIST Feb 18, 2017 12:25
--- NOTE | 2017-02-18 14:46 | CONS ---
DATE OF ADMISSION: 02/17/2017 DATE OF CONSULTATION: 02/18/2017 PULMONARY PROGRESS NOTE The patient's condition is stable. Denies any significant shortness of breath. Denies any coughing or wheezing. Complains of chronic pain. He complains of diarrhea off and on. PHYSICAL EXAMINATION: GENERAL: Middle-aged male, currently in no distress, awake and alert. VITAL SIGNS: Temperature is 97.4 degrees Fahrenheit, respiratory rate is 14 per minute, heart rate 86 per minute, blood pressure 113/65, O2 sat 92% on 2 liter nasal cannula. HEENT: Supple neck, no JVD, no lymphadenopathy, midline trachea, no thyromegaly. The patient is ed entulous. No neck masses. Pupils are mid size and reactive to light. CHEST: Diminished but clear breath sounds. HEART: S1, S2 audible. No murmurs, regular rhythm. ABDOMEN: Soft, nontender, nondistended. Bowel sounds audible. EXTREMITIES: Chronic lower extremity edema. NEUROLOGIC: No focal deficit. LABORATORY DATA: Not drawn today. MEDICATIONS 1. Cefepime 1 gram IV q.12h. 2. Acyclovir 400 mg orally b.i.d. 3. Mepron 1500 mg daily. 4. Zithromax 1200 mg orally daily. 5. Klonopin 1 mg q.12h. 6. Lomotil on a p.r.n. basis. 7. Feosol 325 mg t.i.d. 8. Diflucan 200 mg orally daily. 9. Dilaudid on a p.r.n. basis. 10. Levaquin 5 mg orally daily. 11. Zyvox 600 mg orally b.i.d. 12. Zofran on a p.r.n. basis. ASSESSMENT: 1. Patient admitted with what appears to be bilateral pneumonia; however, difficult to rule out graham kground of pulmonary fibrosis, especially in light of prolonged stay at [facility] where the patient stays there for a month. 2. History of human immunodeficiency virus positive with history of Kaposi sarcoma as well as histo ry of cryptococcal meningitis. 3. Chronic lower extremity edema. 4. Chronic pain. 5. Diarrhea, likely human immunodeficiency virus associated. RECOMMENDATIONS: Continue current treatment. We will obtain followup chest x-ray in 48 hours. Dictated By: CHIQUITA CASTRO/ANNETTE Conf#: [id number] DID#: [id number]
[2017-02-18 15:41] VITALS: BP 106/68; RESP 18
[2017-02-18] MEDS: DOLUTEGRAVIR SODIUM 50 MG TABLET PO SCH (17:39)
[2017-02-18] MEDS: PREZCOBIX PO SCH (17:39)
[2017-02-18] MEDS: ATOVAQUONE 750 MG/5 ML CUP PO SCH (17:40)
[2017-02-18] MEDS ORDERED: DIPHENOXYLATE/ATROPINE TAB PO PRN (18:00)
[2017-02-18 19:58] VITALS: BP 117/66; RESP 16
[2017-02-18] MEDS: DIPHENHYDRAMINE 25 MG CAP PO PRN (22:38)
[2017-02-19] MEDS: HYDROmorphONE 2 MG TAB PO PRN ×2 (00:15→21:59)
[2017-02-19] MEDS: hydrOXYzine PAMOATE 25 MG CAP PO PRN (01:08)
[2017-02-19 02:25] VITALS: BP 103/64; RESP 16
[2017-02-19 02:26] VITALS: BP 103/64; RESP 16
[2017-02-19 06:04] LABS: ABNORMAL IP MESSAGE 1; BASOPHILS % 0.4 % (0.0-2.0); EOSINOPHILS # 0.2 10^3/ul (0.0-0.5); EOSINOPHILS % 7.2 % (0.0-7.0); HEMATOCRIT 27.2 % (42.0-52.0); HEMOGLOBIN 8.4 g/dl (14.0-18.0); LYMPHOCYTES # 0.5 10^3/ul (0.8-2.9); LYMPHOCYTES % 17.7 % (15.0-51.0); MEAN CORPUSCULAR HEMOGLOBIN 29.9 pg (29.0-33.0); MEAN CORPUSCULAR HGB CONC 30.9 g/dl (32.0-37.0); MEAN CORPUSCULAR VOLUME 96.8 fl (82.0-101.0); MEAN PLATELET VOLUME 10.2 fl (7.4-10.4); MONOCYTE # 0.2 10^3/ul (0.3-0.9); MONOCYTES % 9.1 % (0.0-11.0); NEUTROPHIL # 1.7 10^3/ul (1.6-7.5); NEUTROPHILS % 63.3 % (39.0-77.0); PLATELET COUNT 127 10^3/UL (140-415); POSITIVE DIFF @See below; RED BLOOD COUNT 2.81 10^6/ul (4.70-6.10); RED CELL DISTRIBUTION WIDTH 16.6 % (11.5-14.5); WHITE BLOOD COUNT 2.7 10^3/ul (4.8-10.8)
[2017-02-19] MEDS: LEVOFLOXACIN 500 MG TAB PO SCH (06:15)
[2017-02-19] MEDS: DIPHENHYDRAMINE 25 MG CAP PO PRN ×3 (06:21→20:20)
[2017-02-19 06:38] LABS: CALCIUM 8.1 mg/dl (8.4-10.2); CREATININE 0.57 mg/dl (0.61-1.24); MAGNESIUM 1.7 mg/dl (1.7-2.5); PHOSPHORUS 3.9 mg/dl (2.5-4.9); POTASSIUM 4.1 mmol/L (3.5-5.1)
[2017-02-19 07:58] VITALS: BP 123/67; RESP 20
--- NOTE | 2017-02-19 09:08 | PN ---
Date/Time of Note Date/Time of Note DATE: 02/19/17 TIME: 09:03 Assessment/Plan VTE Prophylaxis VTE Prophylaxis Intervention: ambulation Lines/Catheters IV Catheter Type (from Nrs): Peripheral IV Urinary Cath still in place: No Assessment/Plan Chief Complaint/Hosp Course 56-year-old homeless male with a history of IV drug abuse, left knee septic arthritis, noncompliant, who is also recently treated for PCP was again readmitted for pain management for left lower extremity swelling and pain. 1. Bilateral lower extremity lymphedema (L>R) with a recent history of left knee septic arthritis. Status Post treatment. -Negative arterial and venous studies. -Judicious administration of narcotics as patient is noted with pain seeking behaviors. -We will up with pain management team recommendation. 2.Possible bilateral pneumonia per Q-vew-ivatqffwx fibrosis also cannot be excluded per pulmonary evaluation. Clinically improved. -ID on board. On Zyvox/cefepime/Mepron for PCP prophylaxis/Levaquin/ fluconazole/acyclovir given as significant immunocompromised state. -Follow-up chest x-ray in a.m. 3. HIV/AIDS with CD4 count 20. Patient with noncompliance with his antiretroviral therapy. -On HAART regimen. -Needs to have outpatient clinic follow-up. 4. Chronic anemia combined with underlying iron deficiency. H&H stable. Patient with no signs of bleeding. -We will give IV iron 3 doses followed by continuation of oral iron replacement. 5.Hepatitis C -Status post treatment. Needs outpatient follow-up. 6. Status post staph bacteremia. -Repeat culture so far negative. 7.History of Kaposi sarcoma/ cryptococcal meningitis. 8. Noncompliance. -Patient was counselled. 9. Homelessness -Social service eval. 10. Substance abuse. -Cessation advised. 11. Narcotic seeking behaviors. -Patient will be appropriately placed on pain medications. 12. Diarrhea, likely AIDS related. Improved. C. difficile negative. -Continue PRN lomotil Plan: As per pulmonary/ID recommendation, we will continue current antimicrobial regimen along with antiretroviral therapy. We will follow-up chest x-ray in AM. Disposition: Possible discharge planning in a.m. if chest x-ray remained stable and patient is asymptomatic. In regards to his pain management, patient to be followed up with his outpatient pain management clinic. Patient was seen in collaboration with Dr. Power. Problems: Subjective 24 Hr Interval Summary Free Text/Dictation Patient with improved diarrhea. C. difficile negative. He denied cough, shortness of breath, chest pain, palpitation, fever or chills. Exam/Review of Systems Vital Signs Vitals Vital Signs Date Time Temp Pulse Resp B/P Pulse Ox O2 Delivery O2 Flow Rate FiO2 02/19/17 07:58 98.5 83 20 123/67 95 02/18/17 07:58 Nasal Cannula 2.0 Intake and Output 02/18/17 02/18/17 02/19/17 15:00 23:00 07:00 Intake Total 1850 ml 1200 ml Output Total 900 ml 500 ml Balance 950 ml 700 ml Exam General: With highly temperamental personality HEENT: Normocephalic, Atraumatic, No laceration or hematoma; Eyes: PEERL, Conjunctiva clear, Anicteric sclera Neck: Supple without any lymphadenopathy, nontender, no JVD, no carotid bruits, trachea midline, no thyromegaly Cardiac: S1, S2 auscultated, regular rhythm and rate, no mumurs or gallop Pulmonary: Normal respiratory effort. Chest clear to auscultation bilaterally, no adventitious breath sounds GI: Abdomen normal to inspection. Soft, non tender, non- distended, no masses, no rebound tenderness or guarding. Bowel sounds active on all four quadrants Genitourinary: Deferred Extremities: Bilateral lower extremity/ankle edema with excoriated skin with chronic scleral changes. No focal weakness appreciated. Neurologic: Alert to person, place, time, and situation. Highly Temperamental personality. Skin: Excoriated skin. No cyanosis. Results Result Diagram: 02/19/17 0506 02/19/17 0506 Results 24 hrs Laboratory Tests Test 02/19/17 05:06 White Blood Count 2.7 #L Red Blood Count 2.81 L Hemoglobin 8.4 L Hematocrit 27.2 L Mean Corpuscular Volume 96.8 Mean Corpuscular Hemoglobin 29.9 Mean Corpuscular Hemoglobin Concent 30.9 L Red Cell Distribution Width 16.6 H Platelet Count 127 #L Mean Platelet Volume 10.2 Neutrophils % 63.3 Lymphocytes % 17.7 Monocytes % 9.1 Eosinophils % 7.2 H Basophils % 0.4 Nucleated Red Blood Cells % 0.0 Neutrophils # 1.7 Lymphocytes # 0.5 L Monocytes # 0.2 L Eosinophils # 0.2 Basophils # 0.0 Nucleated Red Blood Cells # 0.0 Sodium Level 138 Potassium Level 4.1 Chloride Level 107 Carbon Dioxide Level 25 Anion Gap 10 Blood Urea Nitrogen 16 Creatinine 0.57 L Glucose Level 105 Calcium Level 8.1 L Phosphorus Level 3.9 Magnesium Level 1.7 Medications Medications Current Medications Cefepime HCl (Maxipime 1gm/50 ml (Pmx)) 50 ml @ 100 mls/hr Q12 IVPB Last administered on 02/18/17 21:02; Admin Dose 100 MLS/HR; Start 02/15/17 at 21: 00 Ondansetron HCl (Zofran Inj) 4 mg Q6H PRN IV NAUSEA AND/OR VOMITING; Start 03/24 at 12:30 Acetaminophen (Tylenol Tab) 650 mg Q6H PRN PO PAIN LEVEL 1-3 OR FEVER; Start 02/15/17 at 12:30 Ferrous Sulfate (Ferrous Sulfate (Ec)) 325 mg TID PO Last administered on 02/18 21:04; Admin Dose 325 MG; Start 02/15/17 at 21:00 Zolpidem Tartrate (Ambien) 5 mg QHS PRN PO INSOMNIA; Start 02/15/17 at 23:30 Methadone HCl (Methadone) 20 mg BID PO Last administered on 02/18/17 21:03; Admin Dose 20 MG; Start 02/16/17 at 21:00 Hydromorphone HCl (Dilaudid) 2 mg Q6H PRN PO PAIN LEVEL 6-10 Last administered on 02/19/17 00:15; Admin Dose 2 MG; Start 02/16/17 at 10:30 Levofloxacin (Levaquin) 500 mg DAILY@06 PO Last administered on 02/19/17 06: 15; Admin Dose 500 MG; Start 02/17/17 at 06:00 Azithromycin (Zithromax) 1,200 mg Q7D PO Last administered on 02/16/17 15:47 ; Admin Dose 1,200 MG; Start 02/16/17 at 13:00 Fluconazole (Diflucan) 200 mg DAILY PO Last administered on 02/18/17 08:44; Admin Dose 200 MG; Start 02/16/17 at 13:00 Acyclovir (Zovirax) 400 mg BID PO Last administered on 02/18/17 21:04; Admin Dose 400 MG; Start 02/16/17 at 21:00 Linezolid (Zyvox) 600 mg BID PO Last administered on 02/18/17 21:03; Admin Dose 600 MG; Start 02/16/17 at 21:00 Miscellaneous Information (Pending Santyl Order For Wound Care) This patient west... PRN PRN XX WOUND CARE; Start 02/16/17 at 16:00 Clonazepam (Klonopin) 1 mg Q12 PO Last administered on 02/18/17 21:04; Admin Dose 1 MG; Start 02/16/17 at 21:00 Hydroxyzine Pamoate (Vistaril) 25 mg Q6H PRN PO ITCHING Last administered on 01:08; Admin Dose 25 MG; Start 02/16/17 at 20:30 Bupropion HCl (Wellbutrin Sr) 300 mg DAILY PO ; Start 02/16/17 at 20:30; Status UNV Non-Formulary Medication 1 ea DAILY PO Last administered on 02/18/17 17:39; Admin Dose 1 EA; Start 02/18/17 at 18:00 Dolutegravir Sodium (Tivicay) 50 mg DAILY PO Last administered on 02/18/17 17 :39; Admin Dose 50 MG; Start 02/18/17 at 18:00 Diphenoxylate HCl/ Atropine (Lomotil) 1 tab Q6H PRN PO DIARRHEA Last administered on 02/19/17 03:58; Admin Dose 1 TAB; Start 02/18/17 at 18:00 Diphenhydramine HCl (Benadryl) 25 mg Q6H PRN PO ITCHING Last administered on 06:21; Admin Dose 25 MG; Start 02/18/17 at 22:30 DANYELLE GAMEZ NP Feb 19, 2017 09:08
[2017-02-19] MEDS: CEFEPIME 1GM/50 ML (PMX) 50 ML IVPB SCH ×2 (10:06→20:19)
[2017-02-19] MEDS: FLUCONAZOLE 200 MG TAB PO SCH (10:07)
[2017-02-19] MEDS: ACYCLOVIR 400 MG TAB PO SCH ×2 (10:08→20:20)
[2017-02-19] MEDS: ZYVOX 600 MG TAB PO SCH ×2 (10:08→20:21)
[2017-02-19] MEDS: DOLUTEGRAVIR SODIUM 50 MG TABLET PO SCH (10:09)
[2017-02-19] MEDS: PREZCOBIX PO SCH (10:10)
[2017-02-19] MEDS: METHADONE 10 MG TAB PO SCH ×2 (10:28→20:20)
[2017-02-19] MEDS: clonAZEPAM 0.5 MG TAB PO SCH ×2 (10:29→20:20)
--- NOTE | 2017-02-19 11:17 | CONS ---
Date/Time of Note Date/Time of Note DATE: 02/19/17 TIME: 11:15 Assessment/Plan Assessment/Plan Additional Assessment/Plan Assessment and recommendations; 1. Patient admitted with shortness of breath possibly due to bilateral pneumonia with most likely on the basis of chronic pulmonary fibrosis. However acute pneumonia is difficult to rule out based upon just one chest x-ray. 2. HIV positive. 3. History of Kaposi's sarcoma. 4. Chronic pain. 5. History of cryptococcal meningitis. 6. Recent prolonged stay at [facility]. Continue current treatment. Obtain follow-up chest x-ray in 24 hours. Continue current antibiotics for now. Consultation Date/Type/Reason Admit Date/Time Feb 17, 2017 at 14:55 Initial Consult Date 02/17/17 Type of Consultation: Pulmonary/critical care 24 HR Interval Summary Free Text/Dictation Patient's condition is stable. Complains of very minimal shortness of breath upon exertion. Denies any coughing, wheezing, sputum production. General exam; middle-aged male, awake alert, currently in no distress. Exam/Review of Systems Vital Signs Vitals Vital Signs Date Time Temp Pulse Resp B/P Pulse Ox O2 Delivery O2 Flow Rate FiO2 02/19/17 07:58 98.5 83 20 123/67 95 02/18/17 07:58 Nasal Cannula 2.0 Intake and Output 02/18/17 02/18/17 02/19/17 15:00 23:00 07:00 Intake Total 1850 ml 1200 ml Output Total 900 ml 500 ml Balance 950 ml 700 ml Exam HEENT exam; supple neck, no JVD. No lymphadenopathy. Midline trachea. No thyromegaly. Patient is edentulous. Chest exam; clear to auscultation. S1-S2 audible, no murmurs. Regular rhythm. Abdomen exam; soft, nontender. No organomegaly. Bowel sounds audible. Extremity exam; chronic lower extremity edema. With multiple scars bilaterally. FLUX CORE WELDER exam; no focal deficit. Results Result Diagram: 02/19/17 0506 02/19/17 0506 Results 24 hrs Laboratory Tests Test 02/19/17 05:06 White Blood Count 2.7 #L Red Blood Count 2.81 L Hemoglobin 8.4 L Hematocrit 27.2 L Mean Corpuscular Volume 96.8 Mean Corpuscular Hemoglobin 29.9 Mean Corpuscular Hemoglobin Concent 30.9 L Red Cell Distribution Width 16.6 H Platelet Count 127 #L Mean Platelet Volume 10.2 Neutrophils % 63.3 Lymphocytes % 17.7 Monocytes % 9.1 Eosinophils % 7.2 H Basophils % 0.4 Nucleated Red Blood Cells % 0.0 Neutrophils # 1.7 Lymphocytes # 0.5 L Monocytes # 0.2 L Eosinophils # 0.2 Basophils # 0.0 Nucleated Red Blood Cells # 0.0 Sodium Level 138 Potassium Level 4.1 Chloride Level 107 Carbon Dioxide Level 25 Anion Gap 10 Blood Urea Nitrogen 16 Creatinine 0.57 L Glucose Level 105 Calcium Level 8.1 L Phosphorus Level 3.9 Magnesium Level 1.7 Medications Medications Current Medications Cefepime HCl (Maxipime 1gm/50 ml (Pmx)) 50 ml @ 100 mls/hr Q12 IVPB Last administered on 02/19/17 10:06; Admin Dose 100 MLS/HR; Start 02/15/17 at 21: 00 Ondansetron HCl (Zofran Inj) 4 mg Q6H PRN IV NAUSEA AND/OR VOMITING; Start 03/24 at 12:30 Acetaminophen (Tylenol Tab) 650 mg Q6H PRN PO PAIN LEVEL 1-3 OR FEVER; Start 02/15/17 at 12:30 Zolpidem Tartrate (Ambien) 5 mg QHS PRN PO INSOMNIA; Start 02/15/17 at 23:30 Methadone HCl (Methadone) 20 mg BID PO Last administered on 02/19/17 10:28; Admin Dose 20 MG; Start 02/16/17 at 21:00 Hydromorphone HCl (Dilaudid) 2 mg Q6H PRN PO PAIN LEVEL 6-10 Last administered on 02/19/17 00:15; Admin Dose 2 MG; Start 02/16/17 at 10:30 Levofloxacin (Levaquin) 500 mg DAILY@06 PO Last administered on 02/19/17 06: 15; Admin Dose 500 MG; Start 02/17/17 at 06:00 Azithromycin (Zithromax) 1,200 mg Q7D PO Last administered on 02/16/17 15:47 ; Admin Dose 1,200 MG; Start 02/16/17 at 13:00 Fluconazole (Diflucan) 200 mg DAILY PO Last administered on 02/19/17 10:07; Admin Dose 200 MG; Start 02/16/17 at 13:00 Acyclovir (Zovirax) 400 mg BID PO Last administered on 02/19/17 10:08; Admin Dose 400 MG; Start 02/16/17 at 21:00 Linezolid (Zyvox) 600 mg BID PO Last administered on 02/19/17 10:08; Admin Dose 600 MG; Start 02/16/17 at 21:00 Miscellaneous Information (Pending Santyl Order For Wound Care) This patient west... PRN PRN XX WOUND CARE; Start 02/16/17 at 16:00 Clonazepam (Klonopin) 1 mg Q12 PO Last administered on 02/19/17 10:29; Admin Dose 1 MG; Start 02/16/17 at 21:00 Hydroxyzine Pamoate (Vistaril) 25 mg Q6H PRN PO ITCHING Last administered on 01:08; Admin Dose 25 MG; Start 02/16/17 at 20:30 Bupropion HCl (Wellbutrin Sr) 300 mg DAILY PO ; Start 02/16/17 at 20:30; Status UNV Non-Formulary Medication 1 ea DAILY PO Last administered on 02/19/17 10:10; Admin Dose 1 EA; Start 02/18/17 at 18:00 Dolutegravir Sodium (Tivicay) 50 mg DAILY PO Last administered on 02/19/17 10 :09; Admin Dose 50 MG; Start 02/18/17 at 18:00 Diphenoxylate HCl/ Atropine (Lomotil) 1 tab Q6H PRN PO DIARRHEA Last administered on 02/19/17 03:58; Admin Dose 1 TAB; Start 02/18/17 at 18:00 Diphenhydramine HCl (Benadryl) 25 mg Q6H PRN PO ITCHING Last administered on 06:21; Admin Dose 25 MG; Start 02/18/17 at 22:30 Ferrous Sulfate 325 mg 325 mg TID PO ; Start 02/22/17 at 09:00 Ferric Sodium Gluconate Complex/ Sodium Chloride (Ferrlecit/NS) 110 ml @ 100 mls/hr Q24H IVPB ; Start 02/19/17 at 12:00; Stop 10/17/17 at 13:05 CHIQUITA HOLT Feb 19, 2017 11:17
[2017-02-19] MEDS: SOD FERRIC GLUC COMPLX 125 MG in SOD CHLORIDE 0.9% 100 ML IVPB SCH (12:00)
--- NOTE | 2017-02-19 14:18 | CONS ---
Date/Time of Note Date/Time of Note DATE: 02/19/17 TIME: 14:00 Consultation Date/Type/Reason Admit Date/Time Feb 17, 2017 at 14:55 Initial Consult Date Chief Complaint/Hosp Course SUBJECTIVE: Pt is awake, alert and afebrile. Feeling ok. Denies fever, pain. Comfortably resting in bed. VS: 123/67 P:83 R:20 SO2:95% T:98.5 LABS: WBC-2.7 H&H: 8.4/27.2 BUN-16 Creat-0.57 MICROBIOLOGY: Blood and urine culture negative. C DIFFICILE DNA AMPLIFICATION Final CYTOTOXIGENIC C DIFFICILE NEGATIVE (Ref Range Neg) FECES CULTURE Preliminary Organism 1 VANCO RESISTANT ENTEROCOCCUS QUANTITY 3+ . MULTI DRUG RESISTANT ORGANISM Organism 2 COLIFORM QUANTITY NO PHONED TO [facility],1020,02/19/17.TT No Salmonella, Shigella, Staph aureus, Aeromonas, Vibrio species. VRE M.I.C. RX --------- --- AMPICILLIN <=2 S GENTAMICIN 120 S LINEZOLID 1 S PENICILLIN-G 2 S QUINUPRISTIN/DALFOPRISTIN 4 R STREPTOMYCIN 300 R VANCOMYCIN >=32 R CXR IMPRESSION: 02/17 Bilateral pneumonia is mildly progressed on the right and significantly progressed on the left. Follow-up to resolution. ANTIMICROBIALS: Zyvox, Cefepime,Zithromax, Diflucan, Meprone, Dolutegravir. ALL: Sulfa, Vanco, Dapsone, Cipro, Rocephin PHYSICAL EXAMINATION: GENERAL: Chronically ill-appearing, cachectic, middle-aged man in no distress. HEENT: Head atraumatic, normocephalic. Sclerae anicteric. Buccal mucosa dry. CHEST: Rise symmetrical. Breath sounds diminished to bases. HEART: S1, S2. ABDOMEN: Soft. Bowel tones hypoactive. EXTREMITIES: Left lower extremity edema, chronic. ASSESSMENT: 1. Healthcare-associated pneumonia. 2. Acquired immunodeficiency syndrome with recent CD4 count at [facility] being undetectable, patient had been noncompliant with MCMILLAN 3. Stenotrophomonas and methicillin-resistant Staphylococcus aureus bacteremia on 01/12/2017 and on 03/05/2017 blood culture grew Stenotrophomonas. Repeat blood cultures negative. 4. Chronic pancytopenia. 5. History of Strep pyogenes left knee septic arthritis, treated in the past. 6. Methicillin-resistant Staphylococcus aureus nares colonization. 7. 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 9. Hepatitis C virus, s/p treated with Harvoni. 10. History of noncompliance and pain seeking behavior. 11. LLE chronic lymphedema 12. ALLERGY TO SULFA, CEFTRIAXONE, CIPROFLOXACIN, DAPSONE, VANCOMYCIN. PLAN: Clinically stable. Continue current IV antbx and HIV meds. Pulmonary rec- s. Repeat CXR in AM Type of Consultation: ID Exam/Review of Systems Vital Signs Vitals Vital Signs Date Time Temp Pulse Resp B/P Pulse Ox O2 Delivery O2 Flow Rate FiO2 02/19/17 07:58 98.5 83 20 123/67 95 02/18/17 07:58 Nasal Cannula 2.0 Intake and Output 02/18/17 02/18/17 02/19/17 15:00 23:00 07:00 Intake Total 1850 ml 1200 ml Output Total 900 ml 500 ml Balance 950 ml 700 ml Results Result Diagram: 02/19/17 0506 02/19/17 0506 Results 24 hrs Laboratory Tests Test 02/19/17 05:06 White Blood Count 2.7 #L Red Blood Count 2.81 L Hemoglobin 8.4 L Hematocrit 27.2 L Mean Corpuscular Volume 96.8 Mean Corpuscular Hemoglobin 29.9 Mean Corpuscular Hemoglobin Concent 30.9 L Red Cell Distribution Width 16.6 H Platelet Count 127 #L Mean Platelet Volume 10.2 Neutrophils % 63.3 Lymphocytes % 17.7 Monocytes % 9.1 Eosinophils % 7.2 H Basophils % 0.4 Nucleated Red Blood Cells % 0.0 Neutrophils # 1.7 Lymphocytes # 0.5 L Monocytes # 0.2 L Eosinophils # 0.2 Basophils # 0.0 Nucleated Red Blood Cells # 0.0 Sodium Level 138 Potassium Level 4.1 Chloride Level 107 Carbon Dioxide Level 25 Anion Gap 10 Blood Urea Nitrogen 16 Creatinine 0.57 L Glucose Level 105 Calcium Level 8.1 L Phosphorus Level 3.9 Magnesium Level 1.7 Medications Medications Current Medications Cefepime HCl (Maxipime 1gm/50 ml (Pmx)) 50 ml @ 100 mls/hr Q12 IVPB Last administered on 02/19/17t 10:06; Admin Dose 100 MLS/HR; Start 02/15/17 at 21: 00 Ondansetron HCl (Zofran Inj) 4 mg Q6H PRN IV NAUSEA AND/OR VOMITING; Start 03/24 at 12:30 Acetaminophen (Tylenol Tab) 650 mg Q6H PRN PO PAIN LEVEL 1-3 OR FEVER; Start 02/15/17 at 12:30 Zolpidem Tartrate (Ambien) 5 mg QHS PRN PO INSOMNIA; Start 02/15/17 at 23:30 Methadone HCl (Methadone) 20 mg BID PO Last administered on 02/19/17 10:28; Admin Dose 20 MG; Start 02/16/17 at 21:00 Hydromorphone HCl (Dilaudid) 2 mg Q6H PRN PO PAIN LEVEL 6-10 Last administered on 02/19/17 00:15; Admin Dose 2 MG; Start 02/16/17 at 10:30 Levofloxacin (Levaquin) 500 mg DAILY@06 PO Last administered on 02/19/17 06: 15; Admin Dose 500 MG; Start 02/17/17 at 06:00 Azithromycin (Zithromax) 1,200 mg Q7D PO Last administered on 02/16/17 15:47 ; Admin Dose 1,200 MG; Start 02/16/17 at 13:00 Fluconazole (Diflucan) 200 mg DAILY PO Last administered on 02/19/17 10:07; Admin Dose 200 MG; Start 02/16/17 at 13:00 Acyclovir (Zovirax) 400 mg BID PO Last administered on 02/19/17 10:08; Admin Dose 400 MG; Start 02/16/17 at 21:00 Linezolid (Zyvox) 600 mg BID PO Last administered on 02/19/17 10:08; Admin Dose 600 MG; Start 02/16/17 at 21:00 [facility] This patient west... PRN PRN XX WOUND CARE; Start 02/16/17 at 16:00 Clonazepam (Klonopin) 1 mg Q12 PO Last administered on 02/19/17 10:29; Admin Dose 1 MG; Start 02/16/17 at 21:00 Hydroxyzine Pamoate (Vistaril) 25 mg Q6H PRN PO ITCHING Last administered on 01:08; Admin Dose 25 MG; Start 02/16/17 at 20:30 Bupropion HCl (Wellbutrin Sr) 300 mg DAILY PO ; Start 02/16/17 at 20:30; Status UNV Non-Formulary Medication 1 ea DAILY PO Last administered on 02/19/17 10:10; Admin Dose 1 EA; Start 02/18/17 at 18:00 Dolutegravir Sodium (Tivicay) 50 mg DAILY PO Last administered on 02/19/17 10 :09; Admin Dose 50 MG; Start 02/18/17 at 18:00 Diphenoxylate HCl/ Atropine (Lomotil) 1 tab Q6H PRN PO DIARRHEA Last administered on 02/19/17 03:58; Admin Dose 1 TAB; Start 02/18/17 at 18:00 Diphenhydramine HCl (Benadryl) 25 mg Q6H PRN PO ITCHING Last administered on 06:21; Admin Dose 25 MG; Start 02/18/17 at 22:30 Ferrous Sulfate 325 mg 325 mg TID PO ; Start 02/22/17 at 09:00 Ferric Sodium Gluconate Complex/ Sodium Chloride (Ferrlecit/NS) 110 ml @ 100 mls/hr Q24H IVPB ; Start 02/19/17 at 12:00; Stop 02/21/17 at 13:05 KRISTA FORD Feb 19, 2017 14:11
[2017-02-19 14:36] VITALS: BP 125/83; RESP 20
[2017-02-19] MEDS ORDERED: VITAMIN A & D 5 GM OINT PACKET TOP ONE (17:07)
[2017-02-19] MEDS: ATOVAQUONE 750 MG/5 ML CUP PO SCH (17:34)
[2017-02-20 02:00] VITALS: BP 107/74; RESP 20
[2017-02-20] MEDS: HYDROmorphONE 2 MG TAB PO PRN (04:52)
[2017-02-20] MEDS: DIPHENHYDRAMINE 25 MG CAP PO PRN (04:52)
[2017-02-20] MEDS: LEVOFLOXACIN 500 MG TAB PO SCH (04:52)
[2017-02-20] MEDS: PREZCOBIX PO SCH (09:00)
[2017-02-20] MEDS: METHADONE 10 MG TAB PO SCH (09:38)
[2017-02-20] MEDS: ZYVOX 600 MG TAB PO SCH (09:38)
[2017-02-20] MEDS: ACYCLOVIR 400 MG TAB PO SCH (09:38)
[2017-02-20] MEDS: clonAZEPAM 0.5 MG TAB PO SCH (09:38)
[2017-02-20] MEDS: DOLUTEGRAVIR SODIUM 50 MG TABLET PO SCH (09:39)
[2017-02-20] MEDS: FLUCONAZOLE 200 MG TAB PO SCH (09:39)
[2017-02-20] MEDS: CEFEPIME 1GM/50 ML (PMX) 50 ML IVPB SCH (09:40)
[2017-02-20 10:30] LABS: CALCIUM 8.6 mg/dl (8.4-10.2); CREATININE 0.66 mg/dl (0.61-1.24); POTASSIUM 4.6 mmol/L (3.5-5.1)
[2017-02-20] MEDS ORDERED: DOXY100T20 PO (11:00)
[2017-02-20] MEDS ORDERED: Azithromycin PO (11:00)
[2017-02-20] MEDS ORDERED: LEVO500T72 PO (11:00)
[2017-02-20] MEDS ORDERED: FER325 PO (11:00)
[2017-02-20] MEDS ORDERED: ACYC400T2 PO (11:00)
[2017-02-20] MEDS ORDERED: FLUC200T36 PO (11:00)
--- NOTE | 2017-02-20 11:05 | DS ---
Date/Time of Note Date/Time of Note DATE: 02/20/17 TIME: 11:03 Discharge Summary Admission/Discharge Info Admit Date/Time Feb 17, 2017 at 14:55 Discharge Date/Time Discharge Diagnosis AIDS, Healthcare-associated pneumonia previous hepatitis B exposure v chronic infection, chronic hepatitis C subclinical hypothyroid anemia Patient Condition: Guarded Consults ID, pulm Procedures LABS Hep C Ab+ Hep B sAg -, cAb + TSH 7.76, ft4 1.25 CD4 20/4% b12>1000, folate >20 10.11 LE duplex IMPRESSION: No sonographic evidence for deep venous thrombosis. 10.11 blood cultures 1/2 GPRs (consistent with contaminant per ID) 10.11 CXR: IMPRESSION: Focal right lower lung consolidation or pneumonia.. hgb on admission 10.7, hgb 10.15 8.7 Hx of Present Illness This is a 56 year old male with past medical history of HIV, hepatitis C, anemia, Kaposi sarcoma, substance abuse, noncompliance, who was discharged from [facility] 2 days ago after a prolonged stay there. He came to the emergency room at [facility] because of multiple complaints. He complained of multiple episodes of nonbloody diarrhea, abdominal cramping, bilateral lower extremity pain, etc. In the emergency room, the patient's workup showed he has underlying normocytic normochromic anemia. He underwent a chest x-ray that showed focal right lower lung consolidation. He was treated with IV cefepime, and analgesics, and IV fluids in the emergency room. The patient's lactic acid levels were within normal limits. Hospital Course 56 yo M admitted for chronic leg swelling. US negative for DVT. CXR with lung infiltrate consistent with pneumonia. ID consulted given pt's immunocompromised state. Pt started on broad spectrum abx, narrowed to PO at discharge. Pt sent out on HAART with appropriate OI prophx. Labs obtained during his admission notable for anemia (present for >2 mos per patient) and subclinical hypothyroid. Pt advised to follow up with PCP. Home Meds Active Scripts Doxycycline Hyclate* (Doxycycline Hyclate*) 100 Mg Tablet., 100 MG PO DAILY for 10 Days, #10 TAB Prov:HERB HENNESSY MD 02/20/17 Acyclovir* (Acyclovir*) 400 Mg Tablet, 400 MG PO BID for 30 Days, #60 TAB Prov:HERB HENNESSY MD 02/20/17 Ferrous Sulfate* (Ferrous Sulfate*) 325 Mg Tabec, 325 MG PO TID for 30 Days, # 90 TAB Prov:HERB HENNESSY MD 02/20/17 Levofloxacin* (Levaquin*) 500 Mg Tablet, 500 MG PO DAILY@06 for 10 Days, #10 TAB Prov:HERB HENNESSY MD 02/20/17 [Azithromycin] 600 MG TAB No Conflict Check, 1200 MG PO Q7D for 30 Days, #5 TAB Prov:HERB HENNESSY MD 02/20/17 Fluconazole* (Diflucan*) 200 Mg Tablet, 200 MG PO DAILY for 30 Days, #60 TAB Prov:HERB HENNESSY MD 02/20/17 Reported Medications Loperamide Hcl* (Loperamide Hcl*) 2 Mg Cap, 2 MG PO DAILY Y for DIARRHEA, CAP 02/15/17 Folic Acid* (Folic Acid*) 1 Mg Tablet, 1 MG PO DAILY, TAB 02/15/17 Docusate Sodium* (Colace*) 100 Mg Capsule, 100 MG PO BID, #60 CAP 02/15/17 Atovaquone* (Mepron*) 750 Mg/5 Ml Oral.susp, 750 MG PO DAILY 02/15/17 Darunavir/Cobicistat (Prezcobix 800 mg-150 mg Tablet) 1 Each Tablet, 1 EACH PO DAILY, TAB 02/15/17 Zolpidem Tartrate* (Zolpidem Tartrate*) 5 Mg Tablet, 5 MG PO QHS Y for INSOMNIA , #30 TAB 02/15/17 Nicotine* (Nicotine* Patch) 21 mg/day Patch, 1 EACH TD DAILY, PATCH 02/15/17 Ondansetron Hcl* (Zofran*) 4 Mg Tab, 4 MG PO Q6 Y for NAUSEA AND OR VOMITING, TAB 02/15/17 Gabapentin* (Gabapentin*) 300 Mg Capsule, 300 MG PO TID, #90 CAP 02/15/17 Dolutegravir Sodium (Tivicay) 50 Mg Tablet, 50 MG PO DAILY, TAB 02/15/17 Clonazepam* (Klonopin*) 1 Mg Tablet, 1 MG PO BID Y for ANXIETY, TAB 02/15/17 Discontinued Reported Medications Docusate Sodium* (Docusate Sodium*) 100 Mg Capsule, 100 MG PO BID, #60 CAP 02/15/17 Follow-up Plan Follow up with PCP within 3 days for anemia f/u as well as subclinical hypothyroid Primary Care Provider Rani Barry Time spent on discharge: > 30 minutes Pending Labs Laboratory Tests Test 02/20/17 06:40 02/20/17 09:31 Lab Scanned Report REFERENCE [id number] Sodium Level 142mmol/L (135-144) Potassium Level 4.6mmol/L (3.5-5.1) Chloride Level 108mmol/L (97-110) Carbon Dioxide Level 24mmol/L (21-31) Anion Gap 15 (8-16) Blood Urea Nitrogen 18mg/dl (7-20) Creatinine 0.66mg/dl (0.61-1.24) Glucose Level 68mg/dl (70-220) Calcium Level 8.6mg/dl (8.4-10.2) HERB HENNESSY MD Feb 20, 2017 11:05
--- NOTE | 2017-02-20 11:07 | CONS ---
Date/Time of Note Date/Time of Note DATE: 02/20/17 TIME: 11:05 Consult Date/Type/Reason Admit Date/Time Feb 17, 2017 at 14:55 Initial Consult Date 02/17/17 Type of Consultation: Pulmonary Subjective Patient comfortable this morning. Denies shortness of breath. Objective Vital Signs Date Time Temp Pulse Resp B/P Pulse Ox O2 Delivery O2 Flow Rate FiO2 02/20/17 02:00 97.6 73 20 107/74 98 02/18/17 07:58 Nasal Cannula 2.0 Intake and Output 02/19/17 02/19/17 02/20/17 15:00 23:00 07:00 Intake Total 50 ml 2330 ml 800 ml Output Total 1600 ml 1000 ml Balance 50 ml 730 ml -200 ml Exam GENERAL: Chronically ill-appearing gentleman appears comfortable at rest VITAL SIGNS: per chart NECK: Supple. No JVD or lymphadenopathy. CARDIAC EXAM: S1, S2. No added sounds or murmurs. CHEST: clear bilaterally, No added sounds, rales or wheezes ABDOMEN: Soft, nontender. No guarding or rebound. EXTREMITIES: No cyanosis, clubbing or edema. NEUROLOGIC: Generalized weakness. No focal deficits. Results/Medications Result Diagram: 02/19/17 0506 02/20/17 0931 Results 24 hrs Laboratory Tests Test 02/20/17 06:40 02/20/17 09:31 Lab Scanned Report REFERENCE LAB Sodium Level 142 Potassium Level 4.6 Chloride Level 108 Carbon Dioxide Level 24 Anion Gap 15 Blood Urea Nitrogen 18 Creatinine 0.66 Glucose Level 68 #L Calcium Level 8.6 Medications Current Medications Cefepime HCl (Maxipime 1gm/50 ml (Pmx)) 50 ml @ 100 mls/hr Q12 IVPB Last administered on 02/20/17 09:40; Admin Dose 100 MLS/HR; Start 02/15/17 at 21: 00 Ondansetron HCl (Zofran Inj) 4 mg Q6H PRN IV NAUSEA AND/OR VOMITING; Start 03/24 at 12:30 Acetaminophen (Tylenol Tab) 650 mg Q6H PRN PO PAIN LEVEL 1-3 OR FEVER; Start 02/15/17 at 12:30 Zolpidem Tartrate (Ambien) 5 mg QHS PRN PO INSOMNIA Last administered on 22:59; Admin Dose 5 MG; Start 02/15/17 at 23:30 Methadone HCl (Methadone) 20 mg BID PO Last administered on 02/20/17 09:38; Admin Dose 20 MG; Start 02/16/17 at 21:00 Hydromorphone HCl (Dilaudid) 2 mg Q6H PRN PO PAIN LEVEL 6-10 Last administered on 02/20/17 04:52; Admin Dose 2 MG; Start 02/16/17 at 10:30 Levofloxacin (Levaquin) 500 mg DAILY@06 PO Last administered on 02/20/17 04: 52; Admin Dose 500 MG; Start 02/17/17 at 06:00 Azithromycin (Zithromax) 1,200 mg Q7D PO Last administered on 02/16/17 15:47 ; Admin Dose 1,200 MG; Start 02/16/17 at 13:00 Fluconazole (Diflucan) 200 mg DAILY PO Last administered on 02/20/17 09:39; Admin Dose 200 MG; Start 02/16/17 at 13:00 Acyclovir (Zovirax) 400 mg BID PO Last administered on 02/20/17 09:38; Admin Dose 400 MG; Start 02/16/17 at 21:00 Linezolid (Zyvox) 600 mg BID PO Last administered on 02/20/17 09:38; Admin Dose 600 MG; Start 02/16/17 at 21:00 [facility]iscellaneous [facility] This patient west... PRN PRN XX WOUND CARE; Start 02/16/17 at 16:00 Clonazepam (Klonopin) 1 mg Q12 PO Last administered on 02/20/17 09:38; Admin Dose 1 MG; Start 02/16/17 at 21:00 Hydroxyzine Pamoate (Vistaril) 25 mg Q6H PRN PO ITCHING Last administered on 01:08; Admin Dose 25 MG; Start 02/16/17 at 20:30 Bupropion HCl (Wellbutrin Sr) 300 mg DAILY PO ; Start 02/16/17 at 20:30; Status UNV Non-Formulary Medication 1 ea DAILY PO Last administered on 02/19/17 10:10; Admin Dose 1 EA; Start 10/14/17 at 18:00 Dolutegravir Sodium (Tivicay) 50 mg DAILY PO Last administered on 02/20/17 09 :39; Admin Dose 50 MG; Start 02/18/17 at 18:00 Diphenoxylate HCl/ Atropine (Lomotil) 1 tab Q6H PRN PO DIARRHEA Last administered on 02/19/17 03:58; Admin Dose 1 TAB; Start 02/18/17 at 18:00 Diphenhydramine HCl (Benadryl) 25 mg Q6H PRN PO ITCHING Last administered on 04:52; Admin Dose 25 MG; Start 02/18/17 at 22:30 Ferrous Sulfate 325 mg 325 mg TID PO ; Start 02/22/17 at 09:00 Ferric Sodium Gluconate Complex/ Sodium Chloride (Ferrlecit/NS) 110 ml @ 100 mls/hr Q24H IVPB ; Start 02/19/17 at 12:00; Stop 02/21/17 at 13:05 Assessment/Plan Chief Complaint/Hosp Course Assessment 1. Resolving pneumonia. Significant radiographic improvement today. No evidence of hypoxemia. 2. HIV pending viral load and CD4 count. 3. History of ks 4. Chronic pain. 5. History of cryptococcal meningitis. DC planning with p.o. antibiotics okay from pulmonary standpoint. Continue antiretroviral therapy. Follow-up with outpatient infectious disease specialist. Problems: ISABEL[facility] ARMENTA [facility] Feb 20, 2017 11:07
--- NOTE | 2017-02-20 11:42 | PDOCDIS ---
Discharge Instructions DIAGNOSIS Discharge Diagnosis AIDS, Healthcare-associated pneumonia previous hepatitis B exposure v chronic infection, chronic hepatitis C subclinical hypothyroid anemia CONDITION Patient Condition: Guarded HOME CARE INSTRUCTIONS: Special Diet: regular diet FOLLOW UP/APPOINTMENTS Follow-up Plan Follow up with PCP within 3 days for anemia f/u as well as subclinical hypothyroid HERB HENNESSY MD Feb 20, 2017 11:42
--- NOTE | 2017-02-20 11:45 | RADRPT ---
PROCEDURE: XR Chest. CLINICAL INDICATION: Follow-up pneumonia. TECHNIQUE: Single frontal view of the chest was obtained. COMPARISON: DR JIMENES 02/17/2017. FINDINGS: The soft tissues are normal. The bony elements are normal. The heart, cardiomediastinal silhouette and hilar structures are normal. The pulmonary vasculature is normal. There is a left-sided aorta. There is been interval improvement of the bilateral perihilar infiltrates identified on the prior s tudy. There is residual infiltrate in the lower aspect of the right upper lobe. The costophrenic an gles are normal. IMPRESSION: 1. There are persistent alveolar infiltrates in the lower periphery of the right upper lobe suspicio us for pneumonia. The bilateral perihilar infiltrates overall show improvement when compared to 02/05. RPTAT:AAJJ Physician Jodi Date Time Electronically viewed and signed by Physician Jodi on 02/20/2017 11:44 YAYA/
[2017-02-20] MEDS ORDERED: DARU1TAB PO (11:52)
[2017-02-20] MEDS ORDERED: DOLU50TA PO (11:52)
[2017-02-20] MEDS: SOD FERRIC GLUC COMPLX 125 MG in SOD CHLORIDE 0.9% 100 ML IVPB SCH (12:00)
--- NOTE | 2017-02-20 14:37 | CONS ---
Date/Time of Note Date/Time of Note DATE: 02/20/17 TIME: 14:25 Consultation Date/Type/Reason Admit Date/Time Feb 17, 2017 at 14:55 Initial Consult Date Chief Complaint/Hosp Course SUBJECTIVE: Pt is awake, alert and afebrile. Feeling ok. Sitting in wheelchair. Denies fever, pain. Plan for D/C today and F/U with PCP in 3 days. Cleared by pulm with PO antbx. VS: 107/74 P:73 R:20 SO2:98% T:98.0 LABS: Reviewed. BUN-18 Creat-0.66 MICROBIOLOGY: Blood and urine culture negative. C DIFFICILE DNA AMPLIFICATION Final CYTOTOXIGENIC C DIFFICILE NEGATIVE (Ref Range Neg) FECES CULTURE Preliminary Organism 1 VANCO RESISTANT ENTEROCOCCUS QUANTITY 3+ . MULTI DRUG RESISTANT ORGANISM Organism 2 COLIFORM QUANTITY NO PHONED TO [facility],1020,02/19/17.TT No Salmonella, Shigella, Staph aureus, Aeromonas, Vibrio species. VRE M.I.C. RX --------- --- AMPICILLIN <=2 S GENTAMICIN 120 S LINEZOLID 1 S PENICILLIN-G 2 S QUINUPRISTIN/DALFOPRISTIN 4 R STREPTOMYCIN 300 R VANCOMYCIN >=32 R CXR IMPRESSION: 02/17 Bilateral pneumonia is mildly progressed on the right and significantly progressed on the left. Follow-up to resolution. ANTIMICROBIALS: Zyvox, Levaquin, Diflucan, Meprone, Dolutegravir, Acyclovir. ALL: Sulfa, Vanco, Dapsone, Cipro, Rocephin PHYSICAL EXAMINATION: GENERAL: Chronically ill-appearing, cachectic, middle-aged man in no distress. HEENT: Head atraumatic, normocephalic. Sclerae anicteric. Buccal mucosa dry. CHEST: Rise symmetrical. Breath sounds diminished to bases. HEART: S1, S2. ABDOMEN: Soft. Bowel tones hypoactive. EXTREMITIES: Left lower extremity edema, chronic. ASSESSMENT: 1. Healthcare-associated pneumonia. 2. Acquired immunodeficiency syndrome with recent CD4 count at [facility] being undetectable, patient had been noncompliant with MCMILLAN 3. Stenotrophomonas and methicillin-resistant Staphylococcus aureus bacteremia on 01/12/2017 and on 03/05/2017 blood culture grew Stenotrophomonas. Repeat blood cultures positive. Most likely contaminant. 4. Chronic pancytopenia. 5. History of Strep pyogenes left knee septic arthritis, treated in the past. 6. Methicillin-resistant Staphylococcus aureus nares colonization. 7. 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 9. Hepatitis C virus, s/p treated with Harvoni. 10. History of noncompliance and pain seeking behavior. 11. LLE chronic lymphedema 12. ALLERGY TO SULFA, CEFTRIAXONE, CIPROFLOXACIN, DAPSONE, VANCOMYCIN. PLAN: . Pt is cleared by primary and pulm. for DC anticipate DC on current AIDS medications + PO ABX Doxycycline 100mg po daily x 10 days + Levaquin 500mg po daily x 10 days * ARV: Prescobix + Dolutegravir * Maic Prophy: Azith 12,000 mg Q7D * PJC/PCP Prophy Atovaquone * Hx of Cryptococcus: Diflucan 2000mg po daily * Acyclovir HSV Prophy 2. Consider life-long Doxy suppressive tx for concern recurrent left septic joint 3. NOTE: Patient is ELIGIBLE FOR [place] CARE -- He has 6 years [email or web address] Service w/honorable discharge. * Consider transfer to [place] or [place] patient to [place] [facility] Care @ [facility] -- the facility has many resources for HIV/Opioid addicted Veterans. * [place] also has excellent Psychiatric/Psychology/Social Work services that may benefit this . Type of Consultation: ID Exam/Review of Systems Vital Signs Vitals Vital Signs Date Time Temp Pulse Resp B/P Pulse Ox O2 Delivery O2 Flow Rate FiO2 02/20/17 02:00 97.6 73 20 107/74 98 02/18/17 07:58 Nasal Cannula 2.0 Intake and Output 02/19/17 02/19/17 02/20/17 15:00 23:00 07:00 Intake Total 50 ml 2330 ml 800 ml Output Total 1600 ml 1000 ml Balance 50 ml 730 ml -200 ml Results Result Diagram: 02/19/17 0506 02/20/17 0931 Results 24 hrs Laboratory Tests Test 02/20/17 06:40 02/20/17 09:31 Lab Scanned Report REFERENCE LAB Sodium Level 142 Potassium Level 4.6 Chloride Level 108 Carbon Dioxide Level 24 Anion Gap 15 Blood Urea Nitrogen 18 Creatinine 0.66 Glucose Level 68 #L Calcium Level 8.6 Medications Medications Current Medications Cefepime HCl (Maxipime 1gm/50 ml (Pmx)) 50 ml @ 100 mls/hr Q12 IVPB Last administered on 02/20/17 09:40; Admin Dose 100 MLS/HR; Start 02/15/17 at 21: 00 Ondansetron HCl (Zofran Inj) 4 mg Q6H PRN IV NAUSEA AND/OR VOMITING; Start 03/24 at 12:30 Acetaminophen (Tylenol Tab) 650 mg Q6H PRN PO PAIN LEVEL 1-3 OR FEVER; Start 02/15/17 at 12:30 Zolpidem Tartrate (Ambien) 5 mg QHS PRN PO INSOMNIA Last administered on 22:59; Admin Dose 5 MG; Start 02/15/17 at 23:30 Methadone HCl (Methadone) 20 mg BID PO Last administered on 02/20/17 09:38; Admin Dose 20 MG; Start 02/16/17 at 21:00 Hydromorphone HCl (Dilaudid) 2 mg Q6H PRN PO PAIN LEVEL 6-10 Last administered on 02/20/17 04:52; Admin Dose 2 MG; Start 02/16/17 at 10:30 Levofloxacin (Levaquin) 500 mg DAILY@06 PO Last administered on 02/20/17 04: 52; Admin Dose 500 MG; Start 02/17/17 at 06:00 Azithromycin (Zithromax) 1,200 mg Q7D PO Last administered on 02/16/17 15:47 ; Admin Dose 1,200 MG; Start 02/16/17 at 13:00 Fluconazole (Diflucan) 200 mg DAILY PO Last administered on 02/20/17 09:39; Admin Dose 200 MG; Start 02/16/17 at 13:00 Acyclovir (Zovirax) 400 mg BID PO Last administered on 02/20/17 09:38; Admin Dose 400 MG; Start 02/16/17 at 21:00 Linezolid (Zyvox) 600 mg BID PO Last administered on 02/20/17 09:38; Admin Dose 600 MG; Start 02/16/17 at 21:00 [facility] This patient west... PRN PRN XX WOUND CARE; Start 02/16/17 at 16:00 Clonazepam (Klonopin) 1 mg Q12 PO Last administered on 02/20/17 09:38; Admin Dose 1 MG; Start 02/16/17 at 21:00 Hydroxyzine Pamoate (Vistaril) 25 mg Q6H PRN PO ITCHING Last administered on 01:08; Admin Dose 25 MG; Start 02/16/17 at 20:30 Bupropion HCl (Wellbutrin Sr) 300 mg DAILY PO ; Start 02/16/17 at 20:30; Status UNV Non-Formulary Medication 1 ea DAILY PO Last administered on 02/19/17 10:10; Admin Dose 1 EA; Start 02/18/17 at 18:00 Dolutegravir Sodium (Tivicay) 50 mg DAILY PO Last administered on 02/20/17 09 :39; Admin Dose 50 MG; Start 02/18/17 at 18:00 Diphenoxylate HCl/ Atropine (Lomotil) 1 tab Q6H PRN PO DIARRHEA Last administered on 02/19/17 03:58; Admin Dose 1 TAB; Start 02/18/17 at 18:00 Diphenhydramine HCl (Benadryl) 25 mg Q6H PRN PO ITCHING Last administered on 04:52; Admin Dose 25 MG; Start 02/18/17 at 22:30 Ferrous Sulfate 325 mg 325 mg TID PO ; Start 02/22/17 at 09:00 Ferric Sodium Gluconate Complex/ Sodium Chloride (Ferrlecit/NS) 110 ml @ 100 mls/hr Q24H IVPB ; Start 02/19/17 at 12:00; Stop 02/21/17 at 13:05 KRISTA FORD Feb 20, 2017 14:37
[2017-02-20 14:48] VITALS: BP 122/75; RESP 18
[2017-02-22] MEDS ORDERED: FERROUS SULFATE (EC) 325 MG TAB PO SCH (09:00)
== END 2017-02-20 15:10 | disposition home or self-care (01) | DRG 975 ==
LOC: E/R 06:58 → MS2 10:56 → OBSVTOIN 14:54 → INTOOBSV 14:54 → OBSVTOIN 02-17 14:55
PROVIDERS: ADMIT Internal Medicine; ATTEND Internal Medicine
DX: B20 Human immunodeficiency virus [HIV] disease (principal); J18.9 Pneumonia, unspecified organism; D61.818 Other pancytopenia; R64 Cachexia; Z68.21 Body mass index [BMI] 21.0-21.9, adult; B18.2 Chronic viral hepatitis C; Z91.19 Patient's noncompliance with other medical treatment and regimen; Z59.0 Homelessness; D64.9 Anemia, unspecified; I89.0 Lymphedema, not elsewhere classified; Z76.5 Malingerer [conscious simulation]; R19.7 Diarrhea, unspecified; G89.29 Other chronic pain; R60.0 Localized edema
CPT/HCPCS: 36415; 71010; 73562; 80048; 80053; 80061; 80307; 81003; 82306; 82607; 82652; 82728; 82746; 83036; 83540; 83605; 83690; 83735; 84100; 84439; 84443; 84484; 85025; 85610; 85730; 86360; 86704; 86709; 86803; 87040; 87045; 87075; 87086; 87340; 93005; 93922; 93970; 96374; 96375; 99217; G0378; J0692; J1170; J2270; J2405; J2916; J7030

== ENCOUNTER 2017-05-02 11:37 | Emergency (ER) | payer OTHER ==
[~2017-05-02] VITALS: Wt 79.0 kg
[~2017-05-02 11:37] MED LIST: ACYC400T2 PO; ATOV750L PO; Azithromycin PO; CLON-412 PO; DARU1TAB PO; DOCU-144 PO; DOLU50TA PO; DOXY100T20 PO; FER325 PO; FLUC200T36 PO; FOLI-49 PO; GABA300C16 PO; LEVO500T72 PO; LOPE-123 PO; NICO1PAT6 TD; ONDA-43 PO; ZOLP5TAB7 PO
--- NOTE | 2017-05-02 11:50 | ERD ---
ER Documentation Chief Complaint Chief Complaint Flu-like symptoms HPI This is a 56-year-old male homeless individual with a past medical history of HIV, Kaposi's sarcoma, hepatitis B and C who is now presenting with myalgias, fatigue, nausea and intermittent diarrhea for 2-3 days. The patient does not endorse being around anyone who is sick. He states that he does not think he has the flu. He was treated last month for pneumonia. He does not endorse cough or shortness of breath. He does not endorse fever or chills. He does not endorse any new weight loss. His appetite has been ok. He reports compliance with his HIV medications. The patient has had no headache or vision changes. The patient does not endorse neck or back pain. The patient denies lightheadedness or dizziness. The patient has had no chest pain or shortness of breath or trouble breathing. The patient denies nausea or vomiting. The patient denies abdominal pain or changes to bowel movements or urination. The patient has had no focal deficits. The patient has had no weakness or numbness or tingling to the face or extremities. ROS All systems reviewed and are negative except as per history of present illness. Medications Home Meds Active Scripts Darunavir/Cobicistat (Prezcobix 800 mg-150 mg Tablet) 1 Each Tablet, 1 EACH PO DAILY for 30 Days, #30 TAB Prov:HERB HENNESSY MD 02/20/17 Acyclovir* (Acyclovir*) 400 Mg Tablet, 400 MG PO BID for 30 Days, #60 TAB Prov:HERB HENNESSY MD 02/20/17 Ferrous Sulfate* (Ferrous Sulfate*) 325 Mg Tabec, 325 MG PO TID for 30 Days, # 90 TAB Prov:HERB HENNESSY MD 02/20/17 Reported Medications Loperamide Hcl* (Loperamide Hcl*) 2 Mg Cap, 2 MG PO DAILY Y for DIARRHEA, CAP 02/15/17 Folic Acid* (Folic Acid*) 1 Mg Tablet, 1 MG PO DAILY, TAB 02/15/17 Docusate Sodium* (Colace*) 100 Mg Capsule, 100 MG PO BID, #60 CAP 02/15/17 Atovaquone* (Mepron*) 750 Mg/5 Ml Oral.susp, 750 MG PO DAILY 02/15/17 Zolpidem Tartrate* (Zolpidem Tartrate*) 5 Mg Tablet, 5 MG PO QHS Y for INSOMNIA , #30 TAB 02/15/17 Nicotine* (Nicotine* Patch) 21 mg/day Patch, 1 EACH TD DAILY, PATCH 02/15/17 Ondansetron Hcl* (Zofran*) 4 Mg Tab, 4 MG PO Q6 Y for NAUSEA AND OR VOMITING, TAB 02/15/17 Gabapentin* (Gabapentin*) 300 Mg Capsule, 300 MG PO TID, #90 CAP 02/15/17 Dolutegravir Sodium (Tivicay) 50 Mg Tablet, 50 MG PO DAILY, TAB 02/15/17 Clonazepam* (Klonopin*) 1 Mg Tablet, 1 MG PO BID Y for ANXIETY, TAB 02/15/17 Discontinued Scripts Dolutegravir Sodium (Tivicay) 50 Mg Tablet, 50 MG PO DAILY for 30 Days, #30 TAB Prov:HERB HENNESSY MD 02/20/17 Doxycycline Hyclate* (Doxycycline Hyclate*) 100 Mg Tablet.dr, 100 MG PO DAILY for 10 Days, #10 TAB Prov:HERB HENNESSY MD 02/20/17 Levofloxacin* (Levaquin*) 500 Mg Tablet, 500 MG PO DAILY@06 for 10 Days, #10 TAB Prov:HERB HENNESSY MD 02/20/17 [Azithromycin] 600 MG TAB No Conflict Check, 1200 MG PO Q7D for 30 Days, #5 TAB Prov:HERB HENNESSY MD 02/20/17 Fluconazole* (Diflucan*) 200 Mg Tablet, 200 MG PO DAILY for 30 Days, #60 TAB Prov:HERB HENNESSY MD 02/20/17 Allergies Allergies: Coded Allergies: ceftriaxone (Unverified Allergy, Intermediate, 05/02/17) Sulfa (Sulfonamide Antibiotics) (Verified Allergy, Mild, 05/02/17) itching ciprofloxacin (Verified Allergy, Unknown, 05/02/17) itching dapsone (Verified Allergy, Unknown, 05/02/17) vancomycin (Verified Allergy, Unknown, RASH, 05/02/17) PMhx/Soc History of Surgery: Yes Anesthesia Reaction: No Hx Neurological Disorder: No Hx Respiratory Disorders: No Hx Cardiac Disorders: No Hx Psychiatric Problems: Yes (Hx of anxiety/ depression) Hx Miscellaneous Medical Probl: Yes (HIV, Kaposi Sarcoma ) Hx Alcohol Use: No Hx Substance Use: Yes Hx Tobacco Use: Yes (5 -10 cigarettes a day. MJ occasionally ) FmHx Family History: No coronary disease, No diabetes Physical Exam Vitals Vital Signs Date Time Temp Pulse Resp B/P Pulse Ox O2 Delivery O2 Flow Rate FiO2 05/02/17 17:59 97.7 84 16 97/59 94 Room Air 05/02/17 14:42 86 17 105/70 96 Room Air 05/02/17 12:01 97.9 90 18 107/71 97 Physical Exam Const: No apparent distress, well-developed, well-nourished Head: Normocephalic, Atraumatic Eyes: Normal Conjunctiva. Extraocular movements intact. Pupils equal, round and reactive to light ENT: Normal External Ears, Nose and Mouth. Neck: Full range of motion. No meningismus. Resp: Clear to auscultation bilaterally, No wheezes, rales or rhonchi Cardio: Regular rate and rhythm. No murmurs, rubs or gallops Abd: Soft, non tender, non distended. Normal bowel sounds Skin: No petechiae or rashes Back: No midline tenderness. No CVA tenderness Ext: No cyanosis, or edema. Vitiligo. Neur: Awake and alert, oriented 4. Cranial nerves intact. No facial droop. Normal strength, sensation and coordination. Psych: Normal Mood and Affect Result Diagram: 05/02/17 1240 05/02/17 1240 Results 24 hrs Laboratory Tests Test 05/02/17 12:40 White Blood Count 2.810^3/ul Red Blood Count 3.6210^6/ul Hemoglobin 11.3g/dl Hematocrit 34.6% Mean Corpuscular Volume 95.6fl Mean Corpuscular Hemoglobin 31.2pg Mean Corpuscular Hemoglobin Concent 32.7g/dl Red Cell Distribution Width 11.9% Platelet Count 88413^3/UL Mean Platelet Volume 10.9fl Neutrophils % 63.5% Lymphocytes % 19.5% Monocytes % 14.4% Eosinophils % 1.1% Basophils % 0.4% Nucleated Red Blood Cells % 0.0/100WBC Neutrophils # 1.810^3/ul Lymphocytes # 0.510^3/ul Monocytes # 0.410^3/ul Eosinophils # 0.010^3/ul Basophils # 0.010^3/ul Nucleated Red Blood Cells # 0.010^3/ul Sodium Level 136mmol/L Potassium Level 3.5mmol/L Chloride Level 105mmol/L Carbon Dioxide Level 23mmol/L Anion Gap 12 Blood Urea Nitrogen 14mg/dl Creatinine 0.50mg/dl Glucose Level 101mg/dl Lactic Acid Level 0.9mmol/L Calcium Level 8.5mg/dl Total Bilirubin 0.8mg/dl Direct Bilirubin 0.10mg/dl Indirect Bilirubin 0.7mg/dl Aspartate Amino Transf (AST/SGOT) 135IU/L Alanine Aminotransferase (ALT/SGPT) 77IU/L Alkaline Phosphatase 110IU/L Total Protein 7.4g/dl Albumin 3.5g/dl Globulin 3.90g/dl Albumin/Globulin Ratio 0.89 Hepatitis B Surface Antigen NEGATIVE Hepatitis B Core Total Antibody REACTIVE Hepatitis C Antibody REACTIVE Current Medications Medications (Trade) Dose Ordered Sig/Cecilio Route PRN Reason Start Time Stop Time Status Last Admin Dose Admin Sodium Chloride (NS) 1,000 ml @ 1,000 mls/hr Q1H STAT IV 05/02/17 12:14 05/02/17 13:13 DC 05/02/17 13:09 Ketorolac Tromethamine (Toradol) 15 mg ONCE STAT IV 05/02/17 12:14 05/02/17 12:18 DC 05/02/17 13:09 Procedures/[facility] MDM The patient's presentation warrants further investigation. The patient has symptoms of a flu like illness. His vital signs are stable. We will evaluate for an infectious etiology of his symptoms. He does endorse diarrhea. He is homeless. There is consideration for hepatitis A. However, given his history, he is likely to have been vaccinated in the past. The patient does not know. His last hepatitis panel was negative for active Hepatitis A infection. LABS The patient's blood work was obtained and reviewed. The patient's CBC shows leukopenia, which is chronic. The patient does not have vital signs consistent with a systemic infection. The patient is mildly anemic and thrombocytopenic today, which is also chronic. The patient's CMP shows no signs of metabolic or electrolyte emergencies. The patient has unremarkable renal function testing. He does have transaminitis, which is not surprising as he does have known Hepatitis C. His lactic acid is normal. His influenza panel is negative. IMAGING CXR FINDINGS: The heart is normal in size. The pulmonary vessels are normal in caliber. There is interval resolution of previously noted bilateral pneumonia. Lungs are now clear. The costophrenic angles are sharp. The visualized bony thorax is unremarkable. IMPRESSION: No acute cardiopulmonary disease. Electronically viewed and signed by .Guru Nair MD, on 05/02/2017 13:28 TREATMENT/DISPOSITION The patient was comfortable and sleeping while in the emergency department. His vital signs are unremarkable. He is not septic. I do not see evidence of pneumonia. He does not have urinary symptoms. He may have symptoms of viral illness. If he did contract hepatitis A, he will be given precautions for appropriate hygiene for him and people around him. This will not be back today. At this time, I feel that the patient stable for discharge. The patient will need follow-up with his primary care physician in 2-3 days. The patient will be given strict precautions with which to return to the emergency department. Disclaimer: Inadvertent spelling and grammatical errors are likely due to EHR/ dictation software use and do not reflect on the overall quality of patient care. Note that the electronic time recorded on this note does not necessarily reflect the actual time of the patient encounter. Departure Diagnosis: Primary Impression: Influenza-like illness Additional Impressions: Diarrhea Diarrhea type: unspecified type Qualified Code: R19.7 - Diarrhea, unspecified type Myalgia Condition: AMANDA Mcnair MD May 02, 2017 11:50
[2017-05-02] MEDS ORDERED: SOD CHLORIDE 0.9% 1,000 ML IV STA (12:14)
[2017-05-02] MEDS ORDERED: KETOROLAC 15 MG INJ IV STA (12:14)
[2017-05-02 12:55] LABS: HAAIG REFLEX REFLEX FILED
[2017-05-02 12:57] LABS: ABNORMAL IP MESSAGE 1; BASOPHILS % 0.4 % (0.0-2.0); EOSINOPHILS % 1.1 % (0.0-7.0); HEMATOCRIT 34.6 % (42.0-52.0); HEMOGLOBIN 11.3 g/dl (14.0-18.0); LYMPHOCYTES # 0.5 10^3/ul (0.8-2.9); LYMPHOCYTES % 19.5 % (15.0-51.0); MEAN CORPUSCULAR HEMOGLOBIN 31.2 pg (29.0-33.0); MEAN CORPUSCULAR HGB CONC 32.7 g/dl (32.0-37.0); MEAN CORPUSCULAR VOLUME 95.6 fl (82.0-101.0); MEAN PLATELET VOLUME 10.9 fl (7.4-10.4); MONOCYTE # 0.4 10^3/ul (0.3-0.9); MONOCYTES % 14.4 % (0.0-11.0); NEUTROPHIL # 1.8 10^3/ul (1.6-7.5); NEUTROPHILS % 63.5 % (39.0-77.0); PLATELET COUNT 105 10^3/UL (140-415); POSITIVE DIFF @See below; RED BLOOD COUNT 3.62 10^6/ul (4.70-6.10); RED CELL DISTRIBUTION WIDTH 11.9 % (11.5-14.5); WHITE BLOOD COUNT 2.8 10^3/ul (4.8-10.8)
--- NOTE | 2017-05-02 13:29 | RADRPT ---
PROCEDURE: Chest x-ray CLINICAL INDICATION: Abdominal pain TECHNIQUE: Chest single view COMPARISON: 02/20/2017 FINDINGS: The heart is normal in size. The pulmonary vessels are normal in caliber. There is interval resolu tion of previously noted bilateral pneumonia. Lungs are now clear. The costophrenic angles are sharp . The visualized bony thorax is unremarkable. IMPRESSION: No acute cardiopulmonary disease. RPTAT: HH .Guru Nair MD, MD Date Time Electronically viewed and signed by .Guru Nair MD, on 05/02/2017 13:28 .W/
[2017-05-02 14:20] LABS: ALANINE AMINOTRANSFERASE 77 IU/L (13-69); ALBUMIN 3.5 g/dl (3.3-4.9); ALBUMIN/GLOBULIN RATIO 0.89; ALKALINE PHOSPHATASE 110 IU/L (42-121); ANION GAP 12 (8-16); ASPARTATE AMINO TRANSFERASE 135 IU/L (15-46); BILIRUBIN,INDIRECT 0.7 mg/dl (0-1.1); BILIRUBIN,TOTAL 0.8 mg/dl (0.2-1.3); BLOOD UREA NITROGEN 14 mg/dl (7-20); CALCIUM 8.5 mg/dl (8.4-10.2); CARBON DIOXIDE 23 mmol/L (21-31); CHLORIDE 105 mmol/L (97-110); GLUCOSE 101 mg/dl (70-220); POTASSIUM 3.5 mmol/L (3.5-5.1); SODIUM 136 mmol/L (135-144); TOTAL PROTEIN 7.4 g/dl (6.1-8.1)
[2017-05-02 15:38] LABS: HEPATITIS B CORE ANTIBODY REACTIVE (NEGATIVE)
[2017-05-02 17:59] VITALS: BP 97/59; PULSE 84; RESP 16; TEMP 97.7
== END 2017-05-02 19:17 | disposition home or self-care (01) ==
LOC: E/R 11:37
DX: R53.83 Other fatigue (principal); M79.1 Myalgia; R11.0 Nausea; R19.7 Diarrhea, unspecified; F17.210 Nicotine dependence, cigarettes, uncomplicated
CPT/HCPCS: 71010; 80053; 83605; 85025; 86704; 86709; 86803; 87340; 87400; 96374; J1885; J7030; Z7502

== ENCOUNTER 2017-06-19 21:29 | Inpatient (IN) | END 2017-06-30 15:43 | disposition left against medical advice (07) | DRG 975 ==